=== PATIENT | female | born 1980 | race Caucasian/White ===

== ENCOUNTER 2022-04-29 14:12 | Outpatient (CLI) | payer BC, SELFPAY ==
[2022-04-29 17:31] LABS: Cholesterol* 180 mg/dL (90-199)
[2022-04-29 17:32] LABS: HDL Cholesterol* 52 mg/dL (>=50); LDL Cholesterol Calculated 106 mg/dL (<100); Triglycerides* 109 mg/dL (40-149)
[2022-04-29 17:48] LABS: Vitamin D 25 Hydroxy* 46 ng/mL (30-80)
[2022-04-29 18:00] LABS: TSH With Reflex to FT4* 0.695 uIU/mL (0.270-4.200)
[2022-04-29 18:01] LABS: Hepatitis B Surface Antigen* Negative (Negative)
[2022-04-29 18:12] LABS: HIV 1/2/P24 Combo Screen* Negative (Negative)
[2022-04-29 18:18] LABS: Hepatitis C Virus Antibody* Negative (Negative)
[2022-04-29 23:53] LABS: Chlamydia DNA Amplified* NOT DETECTED (No Detected); GC DNA Amplified* NOT DETECTED (No Detected)
[2022-05-02 00:20] LABS: Rapid Plasma Reagin (RPR) Non Reactive (Non Reactive)
== END 2022-04-29 14:13 | disposition home or self-care (01) ==
PROVIDERS: PCP Family Medicine; Visit Provider Registered Nurse
DX: Z01.419 Encounter for gynecological examination (general) (routine) without abnormal findings (principal); R53.83 Other fatigue; F41.9 Anxiety disorder, unspecified; Z13.9 Encounter for screening, unspecified; Z12.4 Encounter for screening for malignant neoplasm of cervix; Z11.4 Encounter for screening for human immunodeficiency virus [HIV]; Z11.3 Encounter for screening for infections with a predominantly sexual mode of transmission
CPT/HCPCS: 80061; 82306; 84443; 86592; 86703; 86803; 87340; 87491; 87591; 87624

== ENCOUNTER 2023-02-08 13:04 | Outpatient (CLI) | payer BC, SELFPAY ==
--- NOTE | 2023-02-08 13:20 | CRLHL7_ITS ---
For Patients: As a result of the Century Cures Act, medical imaging exams and procedure reports are released immediately into your electronic medical record. You may view this report before your referring provider. If you have questions, please contact your health care provider. BILATERAL SCREENING MAMMOGRAM WITH COMPUTER-AIDED DETECTION AND TOMOSYNTHESIS TECHNIQUE: CC and MLO views were obtained. These mammographic images have been obtained using full-field digital technique. These mammographic images were interpreted with the benefit of computer-aided detection. Breast tomosynthesis was used in this interpretation. COMPARISON FILM: 08/05/21. FINDINGS: The breasts are heterogeneously dense, which may obscure small masses. IMPRESSION: There is no radiographic evidence for malignancy. ASSESSMENT: BI-RADS Category 1: Negative RECOMMENDATION: Routine screening mammogram in 1 year. A lay language report of this examination will be provided to the patient. THOM STEINER M.D. Diagnostic Radiologist [email or web address] Transcribed: 3:[address]/Dictated by: Thom Steiner MD @ 02/09/2023 11:50:00 AM (Electronically Signed)
== END 2023-02-08 13:05 | disposition home or self-care (01) ==
LOC: MAMMO 13:04
PROVIDERS: PCP Family Medicine; Visit Provider Family Medicine
DX: Z12.31 Encounter for screening mammogram for malignant neoplasm of breast (principal); R92.2 Inconclusive mammogram
CPT/HCPCS: 77063; 77067

== ENCOUNTER 2024-02-04 13:52 | Outpatient (CLI) | payer BC, SELFPAY ==
--- OUTSIDE RECORDS SUMMARY | 2024-02-04 13:56 | XMS_ITS | Encounter Summary ---
Author Name Unknown Organization [place] Address [facility] [place] [address] Care Team Providers Care Roller Billet Mill Name Role Phone Joy Mallory MD Unavailable [phone] Maury Mccann Primary Care Provider [phone] Kade Edmonds MD Unavailable [phone] Encounter Details Date Type Department Care Team (Late st Contact Info) Description 12/01/2022 [facility] [place] [facility] Pre[facility] [address] [place] [address] Jazz Lloyd, RN Social History Tobacco Use Types Packs/Day Years Used Date Smoking Tobacco: Never Smokeless Tobacco: Never Alcohol Use Standard Drinks/Week Comments No 0 (1 standard drink = 0.6 oz pur e alcohol) PHQ-2 Answer Date Recorded PHQ-2 Score 0 12/01/2022 Sex and Gender Information Value Date Recorded Sex Assigned at Not on file Gender Identity Not on file Sexual Orientation Not on file COVID-19 Exposure Response Date Recorded In the last 10 days, have yo u been in contact with someone who was confirmed or suspected to have Coronavirus/COVID-19? No / Unsure 12/02/2022 9:17 AM POINT OF SALE ASSOCIATE documented as of this encounter Plan of Treatment Not on file documented as of this encounter Visit Diagnoses Not on filedocumented in this encounter Care Teams Roller Billet Mill Relationship Specialty Start Date End Date Maury Mccann [address] [place] [address] PCP - General Family Medicine 10/22/20 Joy Mallory MD Ophthalmology 01/31/18 Kade Edmonds MD [address] [place] [address] Assigned Surgical Provider 11/21/22 Mark Crabtree [facility] [address] [place] [address], [address] [place] [address] Referring Physician Ophthalmology 09/10/16 documented as of this encounter
--- OUTSIDE RECORDS SUMMARY | 2024-02-04 13:56 | XMS_ITS | Encounter Summary ---
Author Name Unknown Organization [place] Address [facility] [place] [address] Care Team Providers Care Plow And Boring Machine Tender Name Role Phone Joy Mallory MD Unavailable [phone] Maury Mccann Primary Care Provider [phone] Kade Edmonds MD Unavailable [phone] Reason for Visit * Reason Onset Date Comments Eye Problem 12/11/2022 Encounter Details Date Type Department Care Team (Late st Contact Info) Description 12/11/2022 [facility] [place] [facility] [address] [address] [place] [address] Cristian Matthews, RN Eye Problem Social History Tobacco Use Types Packs/Day Years [...] Coronavirus/COVID-19? No / Unsure 12/02/2022 9:17 AM HISTORIAN RESEARCH ASSISTANT documented as of this encounter Plan of Treatment Not on file documented as of this encounter Visit Diagnoses Not on filedocumented in this encounter Care Teams Plow And Boring Machine Tender Relationship Specialty Start Date End Date Kendra Mccannmargarito Hernandez [address] [place] [address] PCP - General Family Medicine 10/22/20 Joy Mallory MD Ophthalmology 01/31/18 Kade Edmonds MD [address] [place] [address] Assigned Surgical Provider 11/21/22 Mark Crabtree [facility] [address] [place] [address], [address] [place], [place] [id number] Referring Physician Ophthalmology 09/10/16 documented as of this encounter
--- OUTSIDE RECORDS SUMMARY | 2024-02-04 13:56 | XMS_ITS | Clinical Summary ---
Author Name Unknown Organization [place] Address [address] [place] [address] Care Team Providers Care Police Or Patrol Park Officer Name Role Phone Joy Mallory MD Unavailable [phone] Maury Mccann Primary Care Provider [phone] Kade Edmonds MD Unavailable [phone] Allergies Active Allergy Reactions Criticality Noted Date Comments Animal Dander 09/21/2016 Other reaction(s): Runny Nose Chromium 09/21/2016 Allergy to artificial metals Egg White (Egg Protein) Other (See Comments) 09/21/2016 No Clinical Screening - See Comments 09/21/2016 Other reaction(s): Runny Nose Ragweeds 09/21/2016 Other reaction(s): Runny Nose Zolpidem 09/21/2016 nightmares Medications Medication Sig Dispensed Refills Start Date End Date Status Multiple Vitamin (MULTIVITAMIN PO) Take by mouth every morning Active albuterol (PROAIR HFA/PROVENTIL HFA/VENTOLIN HFA) 108 (90 Base) MCG/ACT inhaler Inhale into the lungs as needed 03/19/2022 Active ckjieomg-vlhdbnbzu-ae xamethasone (MAXITROL) 0.1 % ophthalmic suspensionIndications :Ptosis of eyelid, left Place 1 drop Into the left eye 4 times daily 3 mL 12/02/2022 Active erythromycin (ROMYCIN) 5 MG/GM ophthalmic ointmentIndications:P tosis of eyelid, left Apply small amount to incision sites three times daily, then apply to inner lower lid of operative eye(s) at bedtime, as directed. 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 Miscarriage, threatened, early 015 Ovarian cyst complicating pr egnancy in first trimester, antepartum 11/19/2014 Pelvic pain complicating 11/19/2014 Supraventricular tachycardia (H24) 11/02/2014 Overview: Tachycardia Supraventricular (SVT) NOS OCD (obsessive compulsive disorder) 11/12/2012 Paroxysmal supraventricular tachycardia (H24) Overview: -02/09/08 S/P ablation Allergic rhinitis 12/13/2006 Mild asthma 12/13/2006 Overview: Asthma Chronic Mild Immunizations Name Administration Dates Next Due Flu 65+ Years 06/22/2012 Influenza (IIV3) PF 06/22/2012 MMR 02/08/1994,05/28/1981 TD,PF 7+ (Tenivac) 09/22/2005 TDAP (Adacel,Boostrix) 08/15/2012 Td (Adult), Adsorbed 04/05/1997 Tdap (Adult) Unspecified Formulation 04/05/1997 Family History Medical History Relation Comments Von Willebrand disease Daughter Glaucoma Maternal Grandmother Deep Vein Thrombosis Sister Anesthesia Reaction No family hx of Macular Degeneration No family hx of Relation Status Comments Daughter Alive Father Alive Maternal Grandmother Mother Alive Sister Social History Tobacco Use Types Packs/Day Years Used Date Smoking Tobacco: Never Smokeless Tobacco: Never Tobacco Cessation:Counseling Given: Not Answered Alcohol Use Standard Drinks/Week Comments No 0 (1 standard drink = 0.6 oz pur e alcohol) PHQ-2 Answer Date Recorded PHQ-2 Score 0 12/01/2022 Adolescent Education Answer Date Record ed Getting School Help Needed Not on file 07/02 Sex and Gender Information Value Date Recorded Sex Assigned at Not on file Gender Identity Not on file Sexual Orientation Not on file Last Filed Vital Signs Vital Sign Reading Time Taken Comments Blood Pressure 113/64 12/02/2022 12:00 PM MANAGER REVIEW Pulse 60 12/02/2022 12:00 PM MANAGER REVIEW Temperature 36.8 ??C (98.3 ??F) 12/02/2022 1 2:15 PM MANAGER REVIEW Respiratory Rate 16 12/02/2022 11:2 0 AM MANAGER REVIEW Oxygen Saturation 92% 12/02/2022 12: 00 PM MANAGER REVIEW Inhaled Oxygen Concentration - - Weight 100.2 kg (220 lb 14.4 oz) 12/02/2022 9:46 AM MANAGER REVIEW Height 175.3 cm (5' 9.02) 12/02/2022 9:46 AM CS T Body Mass Index 32.61 12/02/2022 9:46 AM MANAGER REVIEW Plan of Treatment Health Maintenance Due Date Last Done Comments ADVANCE CARE PLANNING 1980 ANNUAL REVIEW OF HM ORDERS 1980 ASTHMA ACTION PLAN 1980 ASTHMA CONTROL TEST 1980 GLUCOSE 1980 MAMMO SCREENING 1980 YEARLY PREVENTIVE VISIT 1980 Pneumococcal Vaccine: Pediatrics (0 to 5 Years) and At-Risk Patients (6 to 64 Years) (1 of 2 - PCV) 02/01/1986 HIV SCREENING 02/01/1995 HEPATITIS C SCREENING 02/01/1998 HEPATITIS B IMMUNIZATION (1 of 3 - 19+ 3-dose series) 02/01/1999 PAP 02/01/2001 LIPID 2020 DTAP/TDAP/TD IMMUNIZATION (4 - Td or Tdap) 08/15/2022 08/15/2012, 09/22/2005, 04/05/1997, Additional history exists COVID-19 Vaccine (1 - season) 2023 INFLUENZA VACCINE (#1) 2023 06/22/2012, 2011 PHQ-2 (once per calendar year) 2023 12/01/2022, 11/16/2022 HPV IMMUNIZATION Aged Out No longer e ligible based on patient's age to complete this topic IPV IMMUNIZATION Aged Out No longer e ligible based on patient's age to complete this topic MENINGITIS IMMUNIZATION Aged Out No l onger eligible based on patient's age to complete this topic RSV MONOCLONAL ANTIBODY Aged Out No l onger eligible based on patient's age to complete this topic Medical Devices Implanted Type Area Freelance Court Stenographer Device Identifier Shelf Expiration Date Model / Serial / Lot Bioinductive Implant With Arthroscopic Delivery System (1) Medium Implanted:Qty: 1 on 10/22/2020 by Carmine Mcgrath MD at [facility] Left: Shoulder [employer] 05/18/2022 [id number] / / [id number] Tendon Anchors (8) Implanted:Qty: 1 on 10/22/2020 by Carmine Mcgrath MD at [facility] Left: Shoulder [employer] [id number] 08/08/2022 [id number] / / [id number] Bone Anchors (3) Implanted:Qty: 1 on 10/22/2020 by Carmine Mcgrath MD at [facility] Left: Shoulder [employer] [id number] 05/10/2023 [id number] / / [id number] Care Teams Police Or Patrol Park Officer Relationship Specialty Start Date End Date Ramy Maury P [address] [place] [address] [place] [address] PCP - General Family Medicine 10/22/20 Joy Mallory MD Ophthalmology 01/31/18 Kade Edmonds MD [address] [place] [address] [id number] Assigned Surgical Provider 11/21/22 Mark Crabtree [facility] [address] [place] [address], [address] [place] [address] Referring Physician Ophthalmology 09/10/16
--- OUTSIDE RECORDS SUMMARY | 2024-02-04 13:56 | XMS_ITS | Encounter Summary ---
Author Name Unknown Organization [place] Address [facility] [place] [place] [address] Care Team Providers Care Metal Drawer Name Role Phone Joy Mallory MD Unavailable [phone] Maury Mccann Primary Care Provider [phone] Kade Edmonds MD Unavailable [phone] Encounter Details Date Type Department Care Team (Late st Contact Info) Description 12/01/2022 [facility] [place] [facility] Preoperative Assessment [facility] [address] 5th [place] [address] Cathy Rajput, [place] Social History Tobacco Use Types Packs/Day Years [...] Coronavirus/COVID-19? No / Unsure 12/02/2022 9:17 AM GASOLINE PUMP MECHANIC documented as of this encounter Plan of Treatment Not on file documented as of this encounter Visit Diagnoses Not on filedocumented in this encounter Care Teams Metal Drawer Relationship Specialty Start Date End Date Maury Mccann [address] [place] [address] PCP - General Family Medicine 10/22/20 Joy Mallory MD Ophthalmology 01/31/18 Kade Edmonds MD [address] [place] [address] Assigned Surgical Provider 11/21/22 Mark Crabtree [facility] [address] [place] [address], [address] [place] [address] Referring Physician Ophthalmology 09/10/16 documented as of this encounter
--- OUTSIDE RECORDS SUMMARY | 2024-02-04 13:56 | XMS_ITS | Referral Summary ---
Author Name Unknown Organization [place] Address [address] [place] [address] Care Team Providers Care Railroad Operator Name Role Phone Joy Mallory MD Unavailable [phone] Maury Mccann Primary Care Provider [phone] Kade Edmonds MD Unavailable [phone] Allergies Active Allergy Reactions Criticality Noted [...] into the lungs as needed 03/19/2022 Active glrbdrkb-uvejuspdx-zp xamethasone (MAXITROL) 0.1 % ophthalmic suspensionIndications :Ptosis [...] Adsorbed 04/05/1997 Tdap (Adult) Unspecified Formulation 04/05/1997 Social History Tobacco Use Types Packs/Day Years [...] Comments Blood Pressure 113/64 12/02/2022 12:00 PM MACHINE GUNNER Pulse 60 12/02/2022 12:00 PM MACHINE GUNNER Temperature 36.8 ??C (98.3 ??F) 12/02/2022 1 2:15 PM MACHINE GUNNER Respiratory Rate 16 12/02/2022 11:2 0 AM MACHINE GUNNER Oxygen Saturation 92% 12/02/2022 12: 00 PM MACHINE GUNNER Inhaled Oxygen Concentration - - Weight 100.2 kg (220 lb 14.4 oz) 12/02/2022 9:46 AM MACHINE GUNNER Height 175.3 cm (5' 9.02) 12/02/2022 9:46 AM CS T Body Mass Index 32.61 12/02/2022 9:46 AM MACHINE GUNNER Plan of Treatment Not on file Medical Devices Implanted Type Area General Farm Hand Device Identifier Shelf Expiration Date Model / Serial / Lot Bioinductive Implant With Arthroscopic Delivery System (1) Medium Implanted:Qty: 1 on 10/22/2020 by Carmine Mcgrath MD at [facility] Left: Shoulder [employer]W 05/18/2022 [id number] / / [id number] Tendon Anchors (8) Implanted:Qty: 1 on 10/22/2020 by Carmine Mcgrath MD at [facility] Left: Shoulder [employer]HEW [id number] 08/08/2022 2504-1 / / [id number] Bone Anchors (3) Implanted:Qty: 1 on 10/22/2020 by Carmine Mcgrath MD at [facility] Left: Shoulder [employer]HEW [id number] 05/10/2023 [id number] / / [id number] Care Teams Railroad Operator Relationship Specialty Start Date End Date Maury Mccann [address] [place] [address] PCP - General Family Medicine 10/22/20 Joy Mallory MD Ophthalmology 01/31/18 Kade Edmonds MD [address] [place] [address] Assigned Surgical Provider 11/21/22 Mark Crabtree [facility] [address] [place] [address], [address] [place] [address] Referring Physician Ophthalmology 09/10/16
--- OUTSIDE RECORDS SUMMARY | 2024-02-04 13:56 | XMS_ITS | Encounter Summary ---
Author Name Unknown Organization [place] Address [facility] [place] [address] Care Team Providers Care Sugar Chipper Machine Operator Name Role Phone Thom Jones MD Primary Care Provider Joy Mallory MD Unavailable [phone] Maury Mccann Primary Care Provider [phone] Kade Edmonds MD Unavailable [phone] Encounter Details Date Type Department Care Team (Late st Contact Info) Description 09/27/2020 Orders Only [facility] OR [address] [place] [address] Carmine Mcgrath MD [facility] [address] [place] [address] Encounter for screening for other viral diseases Social History Tobacco Use Types Packs/Day Years Used Date Smoking Tobacco: Never Smokeless Tobacco: Never Alcohol Use Standard Drinks/Week Comments No 0 (1 standard drink = 0.6 oz pur e alcohol) Sex and Gender Information Value Date Recorded Sex Assigned at Not on file Gender Identity Not on file Sexual Orientation Not on file documented as of this encounter Plan of Treatment Not on file documented as of this encounter Results * Asymptomatic COVID-19 Virus (Coronavirus) by PCR (10/18/2020 2:47 PM STATISTICS INTERN) COVID-19 Virus PCR to [facility] - Source Nasopharyngeal 10/18/2020 2:47 PM STATISTICS INTERN [facility] COVID-19 Virus PCR to [facility] - Result Test received-See reflex to IDDL test SARS CoV2 (COVID-19) Virus RT-PCR 10/18/2020 6:37 PM STATISTICS INTERN INFECTIOUS DISEASES [facility], [facility] Specimen from nasopharyngeal structure (specimen) 10/18/2020 2:47 PM STATISTICS INTERN 10/18/2020 2:48 PM STATISTICS INTERN Carmine Mcgrath MD LAB - MICRO GENERAL ORDERABLES INFECTIOUS DISEASES [facility], [facility] [address] [place] [address], [facility] [address] [place], [place] [address] [phone] documented in this encounter Visit Diagnoses Diagnosis Encounter for screening for other viral diseases documented in this encounter Care Teams Sugar Chipper Machine Operator Relationship Specialty Start Date End Date Thom Jones MD PCP - General Family Practice 09/10/16 10/21/20 Maury Mccann [address] [place] [address] PCP - General Family Medicine 10/22/20 Joy Mallory MD Ophthalmology 01/31/18 Kade Edmonds MD [address] [place] [address] Assigned Surgical Provider 11/21/22 Mark Crabtree [facility] [address] [place] [address], [address] [place] [address] Referring Physician Ophthalmology 09/10/16 documented as of this encounter
--- OUTSIDE RECORDS SUMMARY | 2024-02-04 13:56 | XMS_ITS | Clinical Summary ---
Author Name Unknown Organization [employer] [facility] Address [place], [place] [address] Care Team Providers Care Educational Therapist Name Role Phone Devendra Mccann MD Primary Care Provider Allergies Active Allergy Reactions Criticality Noted Date Comments Zolpidem Tartrate 03/13/2010 nightmares Animal Dander Itching 09/21/2016 Other reaction(s): Runny Nose Cat Dander Itching 10/06/2006 Cats (Fur, Dander, Saliva) Runny Nose 10/06/2006 Chromium Rash 09/21/2016 Allergy to artificial metals Canine Protein Containing Products Runny Nose 10/06/2006 Chromium And Derivatives 01/18/2008 Allergy to artificial metals Pollen Extracts Itching 09/21/2016 Other reaction(s): Runny Nose Ragweed Itching 09/21/2016 Other reaction(s): Runny Nose Stock Ragweed Pollen Mixture Runny Nose 10/06/2006 Zolpidem Hallucinations 11/02/2014 Medications Medication Sig Dispensed Refills Start Date End Date Status ibuprofen (ADVIL; MOTRIN) 600 mg tabletIndications:Adhes papa capsulitis of left shoulder Take 1 Tablet (600 mg) by mouth every 6 hours if needed for Pain. Maximum of 3200 mg in 24 hours. 30 Tablet 12/25/2021 Active cyclobenzaprine (FLEXERIL) 10 mg tabletIndications:Acute nonintractable headache, unspecified headache type Take 1 Tablet (10 mg) by mouth 3 times daily if needed for Muscle Spasm. 15 Tablet 06/17/2022 Active sertraline (ZOLOFT) 100 mg tablet Take 100 mg by mouth once daily. 04/30/2022 Active cyclobenzaprine (FLEXERIL) 10 mg tabletIndications:Migra ine without aura and without status migrainosus, not intractable Take 1 Tablet (10 mg) by mouth 3 times daily if needed for Muscle Spasm. 30 Tablet 09/14/2022 Active ondansetron (ZOFRAN ODT) 4 mg disintegrating tabletIndications:Migra ine without aura and without status migrainosus, not intractable Place 1 Tablet (4 mg) on the tongue every 8 hours if needed for Nausea/Vomiting . 20 Tablet 09/14/2022 Active albuterol HFA (PRO-AIR; VENTOLIN; PROVENTIL) 90 mcg/actuation inhalerIndications:Acut e cough Inhale 1-2 Puffs by mouth every 6 hours if needed (Cough). 1 Each 03/16/2023 Active Ventolin HFA 90 mcg/actuation inhalerIndications:Bron chitis INHALE TWO PUFFS BY MOUTH EVERY 4 HOURS WHILE AWAKE 1 Each 06/02/2023 Active Active Problems Problem Noted Date Diagnosed Date Adhesive capsulitis of left shoulder 12/24/2021 Anal fissure 11/06/2019 Varicose veins of both lower extremities with pa in 09/12/2019 External hemorrhoids 09/12/2019 Left elbow pain 08/08/2019 Entrapment of left ulnar nerve 08/08/2019 Numbness and tingling in left arm 08/08/2019 Migratory Vision changes 05/17/2019 History of headache 05/17/2019 External hemorrhoid 05/07/2018 Sinus node dysfunction 08/19/2017 Pacemaker 08/19/2017 Palpitations 02/11/2017 Ptosis of left eyelid 07/13/2016 Sinus bradycardia 04/02/2016 Frequent PVCs 04/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 FOB - History SVT - s/p ablation Supervision of other normal 06/15/2012 11/12/2012 Overview: Marginal placenta. Repeat US at 32 weeks. Resolved. Flu 06/22/12 TDaP 08/15/12 First trimester bleeding 04/19/201211/2012 Unspecified asthma(493.90) 01/18/2008 0 11/15/2008 Grade III hemorrhoids 2017 Encounters Date Type Department Care Team Description 12/28/2023 Telephone AGELON ? [facility] [address] [facility] [address] [place] [address] Shlomo Irizarry MD Device Check from Last 3 Months Immunizations Name Administration Dates Next Due Influenza, IIV3 (Age >=3 years) 06/22/2012 MMR 02/08/1994,05/28/1981 Td (Age >=7 Years) 04/05/1997 Td, Preservative Free (age >= 7 Years) 5 Tdap 08/15/2012 Family History Medical History Relation Name Comments Heart Disease Father Jamey Stent Hyperlipidemia Father Jamey Hypertension Father Jamey Stroke Maternal Grandfather Diabetes Maternal Grandmother Lung Ca ncer; Brain Anurysm; Spina Bifida Diabetes Mother Heart Disease Paternal Grandfather Heart Disease Paternal Grandmother Anesthesia Problem No Family History Clotting disorder No Family History Relation Name Status Comments Brother Alive x1 Daughter Alive x1 Father Jamey Alive Maternal Grandfather Alive Maternal Grandmother Mother Alive Paternal Grandfather Paternal Grandmother Sister Alive x2 Social History Tobacco Use Types Packs/Day Years Used Date Smoking Tobacco: Never Smokeless Tobacco: Never Tobacco Cessation:Counseling Given: Yes Alcohol Use Standard Drinks/Week Comments Never 0 (1 standard drink = 0.6 oz pur e alcohol) PHQ-2 Answer Date Recorded PHQ-2 TOTAL SCORE 2 10/07/2020 Social Connections Answer Date Recorded Frequency of Communication with Friends and Fami ly 0 07/17/2022 Financial Resource Strain Answer Date R ecorded Difficulty of Paying Living Expenses 3 07/17/2022 Difficulty of Paying Living Expenses Not on file 07/17/2022 Food Insecurity Answer Date Recorded Worried About Running Out of Food in the Last Ye ar 1 07/17/2022 Transportation Needs Answer Date Record ed Lack of Transportation (Medical) 1 07/17/2022 Housing Stability Answer Date Recorded Unable to Pay for Housing in the Last Year 1 07/17/2022 Sex and Gender Information Value Date Recorded Sex Assigned at Female 11/24/2021 7:04 PM LOFT WORKER Gender Identity Female 11/24/2021 7:04 PM LOFT WORKER Sexual Orientation Straight 11/24/2021 7: 04 PM LOFT WORKER Obstetrics History Para Term AB IAB SAB Ectopic Multiple Livin g Live Births 5 2 2 0 3 0 2 1 0 2 2 Date Outcome GA Total Labor Labor/2nd/3rd Weight Sex Delivery Anes PTL Jacki A1 A5 Name Cl in 08/12 Term 40w 0d 3.8 kg (8 lb 6 oz) F Vag Epidu ral Bev ng 8 9 [place] Delivery Location:[facility] 09/30 Term 39w 2d 3.54 kg (7 lb 13 oz) F Vag Bev ng 8 9 [place] Delivery Location:[facility] 01/25 SAB 8w0 d SPONTANEO US 07/07 SAB 12w 0d SPONTANEO US 11/19 Ectopic 5w0 d ECTOPIC Sánchez Delivery Location:[facility] Comments:ruptured righ t ectopic Last Filed Vital Signs Vital Sign Reading Time Taken Comments Blood Pressure 120/66 10/17/2023 10:40 AM LOFT WORKER Pulse 60 10/17/2023 10:40 AM LOFT WORKER Temperature 37.1 ??C (98.8 ??F) 10/17/2023 1 0:40 AM LOFT WORKER Respiratory Rate 16 10/17/2023 10:4 0 AM LOFT WORKER Oxygen Saturation 96% 10/17/2023 10: 40 AM LOFT WORKER Inhaled Oxygen Concentration - - Weight 106.3 kg (234 lb 6.4 oz) 024 10:40 AM LOFT WORKER Height 170.2 cm (5' 7) 03/19/2022 4:22 PM CDT Body Mass Index 36.71 03/19/2022 4:22 PM CDT Plan of Treatment Upcoming Encounters Date Type Department Care Team (Late st Contact Info) Description 03/22/2024 10:00 AM CDT Cardiac Device Check [facility] [place] [place] [address] Health Maintenance Due Date Last Done Comments BMI (ht and wt on same day) for age 18+ 10/14/2021 10/14/2020, 06/14/2020, 06/04/2020, Additional history exists Depression screening for age 12+ 10/14/2021 10/14/2020, 10/07/2020, 06/16/2019, Additional history exists Tetanus booster 08/15/2022 08/15/2012, 09/10, 04/05/1997 COVID-19 vaccine series ( season) 2023 Influenza for age 9-49 06/11/2024 06/22/2012 Pap test for age 21-65 04/29/2027 , 04/29/2022, 04/11/2021, Additional history exists Tdap Completed 08/15/2012 HIV for age 15-65 Completed 10/07/2020, 03/25/2012 Hepatitis C screening for age 18-79 Completed 10/07/2020 Pneumococcal series for age 6-64 Aged Out No longer eligible based on patient's age to complete this topic Medical Devices Implanted Type Area Printed Circuit Board Reworker Device Identifier Shelf Expiration Date Model / Serial / Lot Single Chamber Mri Conditional Pacemaker Implanted:05/08 by Shlomo Irizarry MD (Quantity not on file) Standard Pacemaker [employer] ESSENTIO MRI SR [id number] / [id number] / Procedures Procedure Name Priority Date/Time Associated Diagnosis Comments HPV THIN PREP Routine 04/29/2022 12:00 PM CDT ANTI HIV 1/2 Routine 10/07/2020 3:22 PM LOFT WORKER Screen for STD (sexually transmitted disease) ANTI HCV Routine 10/07/2020 3:22 PM LOFT WORKER Screen for STD (sexually transmitted disease) from Last 3 Months or Most Recently Relevant to Health Maintenance Results * HPV HIGH RISK (04/29/2022 12:00 PM CDT) TYPE 16 Negative Negative 05/04/2022 3:25 PM CDT [facility] TYPE 18 Negative Negative 05/04/2022 3:25 PM CDT [facility] OTHER HIGH RISK TYPES Negative Negative 05/04/2022 3:25 PM CDT [facility] Other (Cervical) 04/29/2022 12:00 PM CDT 04/30/2022 5:16 PM CDT Narrative [facility] - 05/04/2022 3:25 PM CDT HPV types 16, 18, 31, 33, 35, 39, 45, 51, 52, 56, 58, 59, 66 and 68 DNA were undetectable or below the pre-set threshold. Methodology: Hannah Rafaela 4800 HPV Test Zainab Velásquez NP MICROBIOLOGY Performing Organization Address City/[facility]/ZIP Co de Phone Number [facility] [address] [place] [address], [place] * ANTI HCV (10/07/2020 3:22 PM LOFT WORKER) Pathologist [facility] ANTIBODY Non-React papa Non-React papa 10/07/2020 7:07 PM LOFT WORKER [facility] Comment:Antibodies to HCV no t detected; does not exclude the possibility of exposure to HCV. Blood BLOOD SPECIMEN / Unknown Venipuncture / Unknown 10/07/2020 3:22 PM LOFT WORKER 10/07/2020 3:22 PM LOFT WORKER Soila REED SEND OUTS [facility] [address] [place] [id number], [place] * ANTI HIV 1/2 (10/07/2020 3:22 PM LOFT WORKER) HIV-1/HIV-2 ANTIBODY Non-Reacti ve Non-Reacti ve 10/07/2020 7:09 PM LOFT WORKER [facility] Comment:HIV-1 p24 and HIV-1/ HIV-2 Ab not detected. Blood BLOOD SPECIMEN / Unknown Venipuncture / Unknown 10/07/2020 3:22 PM LOFT WORKER 10/07/2020 3:22 PM LOFT WORKER Soila REED SEND OUTS [facility] [address] [place] [address], from Last 3 Months or Most Recently Relevant to Health Maintenance Advance Directives * Full Code (Latest Code Status on File) Date Activated Date Inactivated Comments 12/25/2021 8:47 AM 12/25/2021 4:33 PM Question Answer Comments Code Status Discussion: Not Discussed * Full Code Date Activated Date Inactivated Comments 06/05/2020 6:12 AM 06/05/2020 1:57 PM Question Answer Comments Code Status Discussion: Not Discussed * Full Code Date Activated Date Inactivated Comments 06/05/2020 6:12 AM 06/05/2020 6:12 AM Question Answer Comments Code Status Discussion: Not Discussed * Full Code Date Activated Date Inactivated Comments 04/17/2020 12:37 PM 04/17/2020 3:57 PM * Full Code Date Activated Date Inactivated Comments 04/17/2020 9:40 AM 04/17/2020 12:37 PM Care Teams Educational Therapist Relationship Specialty Start Date End Date Devendra Mccann MD [address] [place] [address] PCP - General Family Practice 03/06/20
[2024-02-04 18:53] LABS: Chlamydia DNA Amplified* NOT DETECTED (No Detected); GC DNA Amplified* NOT DETECTED (No Detected)
== END 2024-02-04 13:53 | disposition home or self-care (01) ==
PROVIDERS: PCP Family Medicine; Visit Provider Registered Nurse
DX: Z83.2 Family history of diseases of the blood and blood-forming organs and certain disorders involving the immune mechanism (principal); Z13.0 Encounter for screening for diseases of the blood and blood-forming organs and certain disorders involving the immune mechanism
CPT/HCPCS: 80053; 82306; 84443; 85240; 85245; 85246; 87491; 87591

== ENCOUNTER 2024-02-04 14:27 | Outpatient (CLI) | payer BC, SELFPAY ==
--- NOTE | 2024-02-04 14:00 | MM_ITS ---
Patient: LEANA GUY Facility:?[facility] Patient ID:?[id number] Site Patient ID:?[id number]. Site :?[id number] Study:?XRay-Breast Bilateral 3D W/CAD-02/04/2024 3:31:25 PM Ordering Physician:THOM HERNANDEZ Final Report: BILATERAL SCREENING MAMMOGRAM WITH COMPUTER-AIDED DETECTION AND TOMOSYNTHESIS TECHNIQUE: CC and MLO views were obtained. These mammographic images have been obtained using full-field digital technique. These mammographic images were interpreted with the benefit of computer-aided detection. Breast Tomosynthesis was used in this interpretation. COMPARISON FILM: 02/08/23, 08/13/21, 08/05/21. FINDINGS: The breasts are heterogeneously dense, which may obscure small masses. IMPRESSION: There is no radiographic evidence for malignancy. ASSESSMENT: BI-RADS Category 2: Benign RECOMMENDATION: Routine screening mammogram in 1 year. A lay language report of this examination will be provided to the patient. Thom Dc M.D. Diagnostic Radiologist [email or web address] DSM/sp R&T: Transcribed: 3:42 p.m. SP/Dictated by: Thom Dc MD @ 02/07/2024 10:26:00 AM Signed by:?Thom Dc MD @02/07/2024 3:59:25 PM (Electronic Signature)
--- OUTSIDE RECORDS SUMMARY | 2024-02-04 14:29 | XMS_ITS | Encounter Summary ---
Author Name Unknown Organization [facility] Address [facility] [place] [address] Care Team Providers Care A R Collections Rep Name Role Phone Joy Mallory MD Unavailable [phone] Maury Mccann Primary Care Provider [phone] Kade Edmonds MD Unavailable [phone] Encounter Details Date Type Department Care Team (Late st Contact Info) Description 12/01/2022 [facility] [place] Medical Advice [facility] [address] 5th [place] [address] Cathy Rajput, [facility] Social History [...] Coronavirus/COVID-19? No / Unsure 12/02/2022 9:17 AM CHAMPION OF SUSTAINABLE DESIGN documented as of this encounter Plan of Treatment Not on file documented as of this encounter Visit Diagnoses Not on filedocumented in this encounter Care Teams A R Collections Rep Relationship Specialty Start Date End Date Maury Mccann [address] [place] [address] PCP - General Family Medicine 10/22/20 Joy Mallory MD Ophthalmology 01/31/18 Kade Edmonds MD [address] [place] [address] [id number] Assigned Surgical Provider 11/21/22 Mark Crabtree [facility] [address] [place] [address], [address] [place] [address] Referring Physician Ophthalmology 09/10/16 documented as of this encounter
--- OUTSIDE RECORDS SUMMARY | 2024-02-04 14:29 | XMS_ITS | Encounter Summary ---
Author Name Unknown Organization [facility] Address [facility] [place] [address] Care Team Providers Care Marine Engineer Name Role Phone Joy Mallory MD Unavailable [phone] Maury Mccann Primary Care Provider [phone] Kade Edmonds MD Unavailable [phone] Reason for Visit * Reason Onset Date Comments Eye Problem 12/11/2022 Encounter Details Date Type Department Care Team (Late st Contact Info) Description 12/11/2022 [facility] [place] [facility] [address] [address] [place] [address] Cristian Matthews, RN Eye Problem Social History [...] Coronavirus/COVID-19? No / Unsure 12/02/2022 9:17 AM [employer] DRIVER documented as of this encounter Plan of Treatment Not on file documented as of this encounter Visit Diagnoses Not on filedocumented in this encounter Care Teams Marine Engineer Relationship Specialty Start Date End Date Kendra Mccannmargarito Hernandez [address] [place] [address] PCP - General Family Medicine 10/22/20 Joy Mallory MD Ophthalmology 01/31/18 Kade Edmonds MD [address] [place] [address] Assigned Surgical Provider 11/21/22 Mark Cr[facility]tree [facility] [address] [place] [address], [address] [place], [place] [address] Referring Physician Ophthalmology 09/10/16 documented as of this encounter
--- OUTSIDE RECORDS SUMMARY | 2024-02-04 14:29 | XMS_ITS | Referral Summary ---
Author Name Unknown Organization [facility] Address [address] [place] [address] Care Team Providers Care Soil Expert Name Role Phone Joy Mallory MD Unavailable Maury Mccann Primary Care Provider [phone] Kade Edmonds MD Unavailable Allergies Active Allergy Reactions Criticality Noted Date [...] into the lungs as needed 03/19/2022 Active xjifipge-udnyakzdj-rp xamethasone (MAXITROL) 0.1 % ophthalmic suspensionIndications :Ptosis [...] Comments Blood Pressure 113/64 12/02/2022 12:00 PM NEONATAL DOCTOR Pulse 60 12/02/2022 12:00 PM NEONATAL DOCTOR Temperature 36.8 ??C (98.3 ??F) 12/02/2022 1 2:15 PM NEONATAL DOCTOR Respiratory Rate 16 12/02/2022 11:2 0 AM NEONATAL DOCTOR Oxygen Saturation 92% 12/02/2022 12: 00 PM NEONATAL DOCTOR Inhaled Oxygen Concentration - - Weight 100.2 kg (220 lb 14.4 oz) 12/02/2022 9:46 AM NEONATAL DOCTOR Height 175.3 cm (5' 9.02) 12/02/2022 9:46 AM CS T Body Mass Index 32.61 12/02/2022 9:46 AM NEONATAL DOCTOR Plan of Treatment Not on file Medical Devices Implanted Type Area Hand Chain Maker Device Identifier Shelf Expiration Date Model / Serial / Lot Bioinductive Implant With Arthroscopic Delivery System (1) Medium Implanted:Qty: 1 on 10/22/2020 by Carmine Mcgrath MD at [facility] Left: Shoulder [employer] 05/18/2022 [id number] / / [id number] Tendon Anchors (8) Implanted:Qty: 1 on 10/22/2020 by Carmine Mcgrath MD at [facility] Left: Shoulder [employer] [id number] 08/08/2022 2504-1 / / [id number] Bone Anchors (3) Implanted:Qty: 1 on 10/22/2020 by Carmine Mcgrath MD at [facility] Left: Shoulder [employer] [id number] 05/10/2023 [id number] / / [id number] Care Teams Soil Expert Relationship Specialty Start Date End Date Maury Mccann [address] [place] [address] PCP - General Family Medicine 10/22/20 Joy Mallory MD Ophthalmology 01/31/18 Kade Edmonds MD [address] [place] [address] [id number] Assigned Surgical Provider 11/21/22 Mark Crabtree [facility] [address] [place] [address], [address] [place] [address] Referring Physician Ophthalmology 09/10/16
--- OUTSIDE RECORDS SUMMARY | 2024-02-04 14:29 | XMS_ITS | Clinical Summary ---
Author Name Unknown Organization [facility] Address [address] [place] [address] Care Team Providers Care Wood Heel Fitter Machine Name Role Phone Joy Mallory MD Unavailable Maury Mccann Primary Care Provider [phone] Kade Edmonds MD Unavailable [phone] Allergies Active Allergy Reactions Criticality Noted [...] into the lungs as needed 03/19/2022 Active sngnaqof-rluccorve-cr xamethasone (MAXITROL) 0.1 % ophthalmic suspensionIndications :Ptosis [...] Comments Blood Pressure 113/64 12/02/2022 12:00 PM TECHNICIAN PREVENTATIVE MEDICINE Pulse 60 12/02/2022 12:00 PM TECHNICIAN PREVENTATIVE MEDICINE Temperature 36.8 ??C (98.3 ??F) 12/02/2022 1 2:15 PM TECHNICIAN PREVENTATIVE MEDICINE Respiratory Rate 16 12/02/2022 11:2 0 AM TECHNICIAN PREVENTATIVE MEDICINE Oxygen Saturation 92% 12/02/2022 12: 00 PM TECHNICIAN PREVENTATIVE MEDICINE Inhaled Oxygen Concentration - - Weight 100.2 kg (220 lb 14.4 oz) 12/02/2022 9:46 AM TECHNICIAN PREVENTATIVE MEDICINE Height 175.3 cm (5' 9.02) 12/02/2022 9:46 AM CS T Body Mass Index 32.61 12/02/2022 9:46 AM TECHNICIAN PREVENTATIVE MEDICINE Plan of Treatment Health Maintenance Due Date [...] this topic Medical Devices Implanted Type Area Fur Trapper Device Identifier Shelf Expiration Date Model / Serial / Lot Bioinductive Implant With Arthroscopic Delivery System (1) Medium Implanted:Qty: 1 on 10/22/2020 by Carmine Mcgrath MD at [facility] Left: Shoulder [employer] 05/18/2022 [id number] / / [id number] Tendon Anchors (8) Implanted:Qty: 1 on 10/22/2020 by Carmine Mcgrath MD at [facility] Left: Shoulder [employer] [id number] 08/08/2022 2504-1 / / [id number] Bone Anchors (3) Implanted:Qty: 1 on 10/22/2020 by Carmine Mcgrath MD at [facility] Left: Shoulder [employer] [id number] 05/10/2023 [id number] / / [id number] Care Teams Wood Heel Fitter Machine Relationship Specialty Start Date End Date Ramy Maury P [address] [place] [address] [place] [address] PCP - General Family Medicine 10/22/20 Joy Mallory MD Ophthalmology 01/31/18 Kade Edmonds MD [address] [place] [address] [id number] Assigned Surgical Provider 11/21/22 Mark Crabtree [facility] [address] [place] [address], [address] [place] [address] Referring Physician Ophthalmology 09/10/16
--- OUTSIDE RECORDS SUMMARY | 2024-02-04 14:29 | XMS_ITS | Encounter Summary ---
Author Name Unknown Organization [facility] Address [facility] [place] [address] Care Team Providers Care Radio Station Operator Name Role Phone Joy Mallory MD Unavailable [phone] Maury Mccann Primary Care Provider [phone] Kade Edmonds MD Unavailable [phone] Encounter Details Date Type Department Care Team (Late st Contact Info) Description 12/01/2022 [facility] Medical Advice [facility] Preoperative Assessment Center [address] 5th [place] [address] Jazz Lloyd, RN Social History [...] Coronavirus/COVID-19? No / Unsure 12/02/2022 9:17 AM PRODUCTION OPERATIONS INSPECTOR documented as of this encounter Plan of Treatment Not on file documented as of this encounter Visit Diagnoses Not on filedocumented in this encounter Care Teams Radio Station Operator Relationship Specialty Start Date End Date Maury Mccann [address] [place] [address] PCP - General Family Medicine 10/22/20 Joy Mallory MD Ophthalmology 01/31/18 Kade Edmonds MD [address] [place] [address] Assigned Surgical Provider 11/21/22 Mark Crabtree [facility] [address] [place] [address], [address] [place] [address] Referring Physician Ophthalmology 09/10/16 documented as of this encounter
--- OUTSIDE RECORDS SUMMARY | 2024-02-04 14:29 | XMS_ITS | Clinical Summary ---
Author Name Unknown Organization [employer] Address [place], [place] [address] Care Team Providers Care Rental Sales Representative Name Role Phone Devendra Mccann MD Primary [...] Encounters Date Type Department Care Team Description 02/04/2024 Telephone [facility] [address] [facility] [address] [place] [address] Shlomo Irizarry MD Pacemaker Problem 12/28/2023 Telephone [facility] [address] [place] [address] Shlomo Irizarry MD Device Check from Last [...] Sex Assigned at Female 11/24/2021 7:04 PM PUBLIC INTERVIEWER Gender Identity Female 11/24/2021 7:04 PM PUBLIC INTERVIEWER Sexual Orientation Straight 11/24/2021 7: 04 PM PUBLIC INTERVIEWER Obstetrics History Para Term AB IAB SAB [...] 8 9 [place] Delivery Location:[facility] 09/30 Term 39w 2d 3.54 kg (7 lb 13 oz) F Vag Bev ng 8 9 [place] Delivery Location:[facility] 01/25 SAB 8w0 d SPONTANEO US 07/07 SAB 12w 0d SPONTANEO US 11/19 Ectopic 5w0 d ECTOPIC Sánchez Delivery Location:[facility] Comments:ruptured righ t ectopic Last Filed Vital Signs Vital Sign Reading Time Taken Comments Blood Pressure 120/66 10/17/2023 10:40 AM PUBLIC INTERVIEWER Pulse 60 10/17/2023 10:40 AM PUBLIC INTERVIEWER Temperature 37.1 ??C (98.8 ??F) 10/17/2023 1 0:40 AM PUBLIC INTERVIEWER Respiratory Rate 16 10/17/2023 10:4 0 AM PUBLIC INTERVIEWER Oxygen Saturation 96% 10/17/2023 10: 40 AM PUBLIC INTERVIEWER Inhaled Oxygen Concentration - - Weight 106.3 kg (234 lb 6.4 oz) 024 10:40 AM PUBLIC INTERVIEWER Height 170.2 cm (5' 7) 03/19/2022 4:22 PM CDT Body Mass Index 36.71 03/19/2022 4:22 PM CDT Plan of Treatment Upcoming Encounters Date Type Department Care Team (Late st Contact Info) Description 03/22/2024 10:00 AM CDT Cardiac Device Check [facility] at [address] [address] Health Maintenance Due Date Last Done Comments BMI (ht and wt on same day) for age 18+ 10/14/2021 10/14/2020, 06/14/2020, 06/04/2020, Additional history exists Depression screening for age 12+ 10/14/2021 10/14/2020, 10/07/2020, 06/16/2019, Additional history exists Tetanus booster 08/15/2022 08/15/2012, 09/10, 04/05/1997 COVID-19 vaccine series ( season) 2023 Influenza for age 9-49 06/11/2024 06/22/2012 Pap test for age 21-65 04/29/2027 2, 04/29/2022, 04/11/2021, Additional history exists Tdap Completed 08/15/2012 HIV for age 15-65 Completed 10/07/2020, 03/25/2012 Hepatitis C screening for age 18-79 Completed 10/07/2020 Pneumococcal series for age 6-64 Aged Out No longer eligible based on patient's age to complete this topic Medical Devices Implanted Type [employer] Device Identifier Shelf Expiration Date Model / Serial / Lot Single Chamber Mri Conditional Pacemaker Implanted:05/08 by Shlomo Irizarry MD (Quantity not on file) Standard Pacemaker [employer] ESSENTIO MRI SR [id number] / [id number] / Procedures Procedure Name Priority Date/Time Associated Diagnosis Comments HPV THIN PREP Routine 04/29/2022 12:00 PM CDT ANTI HIV 1/2 Routine 10/07/2020 3:22 PM PUBLIC INTERVIEWER Screen for STD (sexually transmitted disease) ANTI HCV Routine 10/07/2020 3:22 PM PUBLIC INTERVIEWER Screen for STD (sexually transmitted disease) from Last 3 Months or Most Recently Relevant to Health Maintenance Results * HPV HIGH RISK (04/29/2022 12:00 PM CDT) TYPE 16 Negative Negative 05/04/2022 3:25 PM CDT [facility] TYPE 18 Negative Negative 05/04/2022 3:25 PM CDT [facility] OTHER HIGH RISK TYPES Negative Negative 05/04/2022 3:25 PM CDT [facility] Other (Cervical) 04/29/2022 12:00 PM CDT 04/30/2022 5:16 PM CDT Narrative [facility] - 05/04/2022 3:25 PM CDT HPV types 16, 18, 31, 33, 35, 39, 45, 51, 52, 56, 58, 59, 66 and 68 DNA were undetectable or below the pre-set threshold. Methodology: Hannah Rafaela 4800 HPV Test Zainab Velásquez WEATHERIZATION INSTALLER MICROBIOLOGY [facility] [address] [place] [address], * ANTI HCV (10/07/2020 3:22 PM PUBLIC INTERVIEWER) [facility] [place] HEPATITIS C ANTIBODY Non-React papa Non-React papa 10/07/2020 7:07 PM PUBLIC INTERVIEWER [facility] Comment:Antibodies to HCV no t detected; does not exclude the possibility of exposure to HCV. Blood BLOOD SPECIMEN / Unknown Venipuncture / Unknown 10/07/2020 3:22 PM PUBLIC INTERVIEWER 10/07/2020 3:22 PM PUBLIC INTERVIEWER Soila REED SEND OUTS [facility] [address] [place] [address], * ANTI HIV 1/2 (10/07/2020 3:22 PM PUBLIC INTERVIEWER) Pathologist [facility] HIV-1/HIV-2 ANTIBODY Non-Reacti ve Non-Reacti ve 10/07/2020 7:09 PM PUBLIC INTERVIEWER [facility] Comment:HIV-1 p24 and HIV-1/ HIV-2 Ab not detected. Blood BLOOD SPECIMEN / Unknown Venipuncture / Unknown 10/07/2020 3:22 PM PUBLIC INTERVIEWER 10/07/2020 3:22 PM PUBLIC INTERVIEWER Soila REED SEND OUTS [facility] [address] [place] [address], from Last 3 Months or Most Recently [...] 9:40 AM 04/17/2020 12:37 PM Care Teams Rental Sales Representative Relationship Specialty Start Date End Date Devendra Mccann MD [address] [place] [address] PCP - General Family Practice 03/06/20
--- OUTSIDE RECORDS SUMMARY | 2024-02-04 14:29 | XMS_ITS | Encounter Summary ---
Author Name Unknown Organization [place] Address [facility] [place] [address] Care Team Providers Care Home Care Music Therapist Name Role Phone Thom Jones MD Primary Care Provider Joy Mallory MD Unavailable [phone] Maury Mccann Primary Care Provider [phone] Kade Edomnds MD Unavailable [phone] Encounter Details Date Type Department Care Team (Late st Contact Info) Description 09/27/2020 Orders Only [facility] OR [address] [place] [address] Carmine Mcgrath MD [facility] [address] [place] [address] Encounter for screening for other viral diseases [...] Virus (Coronavirus) by PCR (10/18/2020 2:47 PM MUSEUM ARCHIVIST) COVID-19 Virus PCR to [facility] [place] - Source Nasopharyngeal 10/18/2020 2:[address] [facility] COVID-19 Virus PCR to [facility] [place] - Result Test received-See reflex to IDDL test SARS CoV2 (COVID-19) Virus RT-PCR 10/18/2020 6:37 PM MUSEUM ARCHIVIST [facility], [facility] Specimen from nasopharyngeal structure (specimen) 10/18/2020 2:47 PM MUSEUM ARCHIVIST 10/18/2020 2:48 PM MUSEUM ARCHIVIST Carmine Mcgrath MD LAB - MICRO GENERAL ORDERABLES INF[facility] DISE[facility], [facility] [address] [place] [address], [facility] [address] [place], [place] [address] [phone] documented in this encounter Visit Diagnoses Diagnosis Encounter for screening for other viral diseases documented in this encounter Care Teams Home Care Music Therapist Relationship Specialty Start Date End Date Thom Jones MD PCP - General Family Practice 09/10/16 10/21/20 Maury Mccann [address] [place] [address] PCP - General Family Medicine 10/22/20 Joy Mallory MD Ophthalmology 01/31/18 Kade Edmonds MD [address] [place] [address] Assigned Surgical Provider 11/21/22 [facility] [address] [place] [address], [address] [place] [address] Referring Physician Ophthalmology 09/10/16 documented as of this encounter
--- OUTSIDE RECORDS SUMMARY | 2024-02-04 14:30 | XMS_ITS | Encounter Summary ---
Author Name Unknown Organization [place] Address [address] [place] [address] Care Team Providers Care Buttermaker Helper Name Role Phone Thom Jones MD Primary Care Provider [phone] Joy Mallory MD Unavailable [phone] Maury Mccann Primary Care Provider [phone] Kade Edmonds MD Unavailable [phone] Encounter Details Date Type Department Care Team (Late st Contact Info) Description 03/01/2018 Telephone [facility] [place] [id number] [facility] 9[facility] [address] [place] [phone] Kade Edmonds MD [address] [place], [place] [phone] Social History Tobacco Use Types Packs/Day Years [...] on filedocumented in this encounter Care Teams Buttermaker Helper Relationship Specialty Start Date End Date Thom Jones MD PCP - General Family Practice 09/10/16 10/21/20 Maury Mccann [address] [place] [address] [place] [address] PCP - General Family Medicine 10/22/20 Joy Mallory MD Ophthalmology 01/31/18 Kade Edmonds MD [address] [place] [address] Assigned Surgical Provider 11/21/22 [facility] [address] [place] [address], [address] [place] [address] Referring Physician Ophthalmology 09/10/16 documented as of this encounter
== END 2024-02-04 14:28 | disposition home or self-care (01) ==
LOC: MAMMO 14:28
PROVIDERS: PCP Family Medicine; Visit Provider Family Medicine
DX: Z12.31 Encounter for screening mammogram for malignant neoplasm of breast (principal); R92.2 Inconclusive mammogram; Z01.419 Encounter for gynecological examination (general) (routine) without abnormal findings; R03.0 Elevated blood-pressure reading, without diagnosis of hypertension; N92.0 Excessive and frequent menstruation with regular cycle; R53.83 Other fatigue; Z11.3 Encounter for screening for infections with a predominantly sexual mode of transmission; Z13.1 Encounter for screening for diabetes mellitus; Z13.9 Encounter for screening, unspecified
CPT/HCPCS: 77063; 77067; 80053; 82306; 84443; 87491; 87591

== ENCOUNTER 2024-02-24 07:16 | Outpatient (CLI) | payer BC, SELFPAY ==
--- NOTE | 2024-02-24 07:15 | US_ITS ---
Patient: LEANA GUY Facility:?[facility] Patient ID:?[id number] Site Patient ID:?[id number]. Site :?[id number] Study:?US-Pelvis PELVIS TA & TV-02/24/2024 7:57:47 AM Ordering Physician:?HEIDI PETERSON CNP Final Report: INDICATION: Menorrhagia COMPARISON: none TECHNIQUE: 2D ramirez scale and color Doppler images were acquired of the pelvis using a transabdominal and transvaginal approach. FINDINGS: Sonographic images demonstrate a normal size and smooth outer contour of the uterus. Uterus measures 9.4 cm in length by 5.8 cm in AP diameter by 5.8 cm in transverse dimension. The myometrium has a heterogeneous echotexture. The endometrial lining measures 6 mm in composite thickness. The right ovary measures 3.5 x 1.8 x 2.3 cm in size and the left ovary measures 2.9 x 1.8 x 1.9 cm. The ovaries demonstrate normal arterial and venous blood flow on color Doppler analysis. There are no suspicious fluid collections within the cul-de-sac. Incidental benign collapsing cyst right ovary measures 1.7 cm. IMPRESSION: Endometrial thickness 6 millimeters. Heterogeneous uterine echotexture without defined leiomyoma. Dictated by Thom Dc MD @ 02/24/2024 12:54:28 PM Signed by:?Thom Dc MD @02/24/2024 12:54:28 PM (Electronic Signature)
--- OUTSIDE RECORDS SUMMARY | 2024-02-24 07:18 | XMS_ITS | Clinical Summary ---
Author Name Unknown Organization [facility] Address [place], [place] [address] Care Team Providers Care Mental Health Advanced Practice Nurse Name Role Phone Devendra Mccann MD Primary [...] Dispensed Refills Start Date End Date Status sertraline (ZOLOFT) 100 mg tablet Take 150 mg by mouth at bedtime. 2 Active aspirin chewable 81 mg chewable tabletIndications: Malfunction of cardiac pacemaker, initial encounter Chew 1 Tablet (81 mg) by mouth once daily. 30 Tablet 4 Active oxyCODONE-acetamin ophen (PERCOCET) 5-325 mg per tabletIndications: S/P cardiac pacemaker procedure Take 1-2 Tablets by mouth every 6 hours if needed for Pain. Max acetaminophen dose: 4000mg in 24 hrs. 10 Tablet 4 Active ibuprofen (ADVIL; MOTRIN) 600 mg tabletIndications: Adhesive capsulitis of left shoulder Take 1 Tablet (600 mg) by mouth every 6 hours if needed for Pain. Maximum of 3200 mg in 24 hours. 30 Tablet 2 02/04/20 24 Discontinued( Pharmacist change per medication history (E-cancel not sent)) cyclobenzaprine (FLEXERIL) 10 mg tabletIndications: Acute nonintractable headache, unspecified headache type Take 1 Tablet (10 mg) by mouth 3 times daily if needed for Muscle Spasm. 15 Tablet 2 02/04/20 24 Discontinued( Pharmacist change per medication history (E-cancel not sent)) cyclobenzaprine (FLEXERIL) 10 mg tabletIndications: Migraine without aura and without status migrainosus, not intractable Take 1 Tablet (10 mg) by mouth 3 times daily if needed for Muscle Spasm. 30 Tablet 2 02/04/20 24 Discontinued( Pharmacist change per medication history (E-cancel not sent)) ondansetron (ZOFRAN ODT) 4 mg disintegrating tabletIndications: Migraine without aura and without status migrainosus, not intractable Place 1 Tablet (4 mg) on the tongue every 8 hours if needed for Nausea/Vomiting. 20 Tablet 2 02/04/20 24 Discontinued( Pharmacist change per medication history (E-cancel not sent)) albuterol HFA (PRO-AIR; VENTOLIN; PROVENTIL) 90 mcg/actuation inhalerIndications :Acute cough Inhale 1-2 Puffs by mouth every 6 hours if needed (Cough). 1 Each 3 02/15/20 24 Discontinued( Pharmacist change per medication history (E-cancel not sent)) Ventolin HFA 90 mcg/actuation inhalerIndications :Bronchitis INHALE TWO PUFFS BY MOUTH EVERY 4 HOURS WHILE AWAKE 1 Each 3 02/04/20 24 Discontinued( Pharmacist change per medication history (E-cancel not sent)) Active Problems Problem Noted Date Diagnosed Date Bradycardia 02/04/2024 Pacemaker malfunction 02/04/2024 Adhesive capsulitis of left shoulder 12/24/2021 Anal [...] Encounters Date Type Department Care Team Description 02/23/2024 Lab Requisition [facility] [phone] Zainab Velásquez NP 02/22/2024 1:30 PM CDT Office Visit [address] [phone] Devendra Mccann MD Wound Check (Suture removal) 02/22/2024 Travel 02/21/[address] [phone] Devendra Mccann MD Follow Up 02/18/2024 Telephone [facility] [place] [address] [phone] Kam Rodríguez MD Concerns 02/17/2024 Refill [facility] [address] [address] Constantin Diaz NP Refill Request 02/17/2024 Telephone [facility] [place] [address] [phone] Kam Rodríguez MD Medication Management 02/15/2024 8:32 AM CDT Anesthesia Event [facility] [address] [place] [phone] Reyes Bell MD Beulke, Steven William, ERNESTINE 02/15/2024 6:26 AM CDT - 02/16/2024 1:57 PM CDT Hospital Encounter [facility] [address] [place] [phone] Kam Rodríguez MD Bradycardia (Primary Dx); Sinus node dysfunction (HC); S/P cardiac pacemaker procedure; Malfunction of cardiac pacemaker, initial encounter Discharge Disposition: Home Self Care 02/15/2024 Travel 02/07/2024 Telephone [facility] [place] [address] [phone] Trish Fuller RN EP Procedure 02/07/2024 Lab Requisition [facility] [phone] Zaianb Velásquez NP 02/04/2024 6:02 PM CDT - 02/05/2024 2:16 PM CDT Hospital Encounter [facility] [address] [address] Chirag Camilo MD [facility] Mark Sullivan MD Berglund, Brian Lukas, MD Failure of pacemaker lead, initial encounter (Primary Dx); Bradycardia Discharge Disposition: Home Self Care 02/04/2024 Travel 02/04/2024 Telephone [facility] [address] [facility] [address] [place] [address] Shlomo Irizarry MD Pacemaker Problem 12/28/2023 Telephone [facility] [address] [place] [address] Shlomo Irizarry MD Device Check [...] PHQ-2 Answer Date Recorded PHQ-2 TOTAL SCORE 0 02/22/2024 Social Connections Answer Date Recorded Frequency of Communication with Friends and Fami ly 0 02/22/2024 Financial Resource Strain Answer Date R ecorded Difficulty of Paying Living Expenses 3 02/22/2024 Difficulty of Paying Living Expenses Not on file 02/22/2024 Food Insecurity Answer Date Recorded Worried About Running Out of Food in the Last Ye ar 1 02/22/2024 Transportation Needs Answer Date Record ed Lack of Transportation (Medical) 1 02/22/2024 Housing Stability Answer Date Recorded Unable to Pay for Housing in the Last Year 1 02/22/2024 Sex and Gender Information Value Date Recorded Sex Assigned at Female 11/24/2021 7:04 PM BARREL RACER Gender Identity Female 11/24/2021 7:04 PM BARREL RACER Sexual Orientation Straight 11/24/2021 7: 04 PM BARREL RACER Obstetrics History Para Term AB IAB SAB [...] 8 9 [place] Delivery Location:[facility] 09/30 Term 39w 2d 3.54 kg (7 lb 13 oz) F Vag Bev ng 8 9 [place] Delivery Location:[facility] 01/25 SAB 8w0 d SPONTANEO US 07/07 SAB 12w 0d SPONTANEO US 11/19 Ectopic 5w0 d ECTOPIC Sánchez Delivery Location:[facility] Comments:ruptured righ t ectopic Last Filed Vital Signs Vital Sign Reading Time Taken Comments Blood Pressure 148/78 02/22/2024 1:28 PM CDT Pulse 80 02/22/2024 1:25 PM CDT Temperature 36.3 ??C (97.4 ??F) 02/16/2024 8:34 AM CD T Respiratory Rate 16 02/22/2024 1:25 PM CDT Oxygen Saturation 96% 02/16/2024 8:34 AM CDT Inhaled Oxygen Concentration - - Weight 107 kg (235 lb 12.8 oz) 02/22/2024 1:25 P M CDT Height 173.2 cm (5' 8.2) 02/22/2024 1:25 PM CDT Body Mass Index 35.64 02/22/2024 1:25 PM CDT Plan of Treatment Upcoming Encounters Date Type Department Care Team (Late st Contact Info) Description 03/22/2024 10:00 AM CDT Cardiac Device Check [facility] at [address] [phone] 06/21/2024 8:30 AM CDT Cardiac Device Check [facility] [address] [place] [address] Health Maintenance Due Date Last Done Comments Tetanus booster 08/15/2022 08/15/2012, 09/10, 04/05/1997 COVID-19 vaccine series (2022- season) 2023 Influenza for age 9-49 06/11/2024 06/22/2012 BMI (ht and wt on same day) for age 18+ 02/21/2025 02/22/2024, 10/14/2020, 06/14/2020, Additional history exists Depression screening for age 12+ 02/21/2025 02/22/2024, 10/14/2020, 10/07/2020, Additional history exists Pap test for age 21-65 02/03/2029 , 04/29/2022, 04/29/2022, Additional history exists Tdap Completed 08/15/2012 HIV for age 15-65 Completed 10/07/2020, 03/25/2012 Hepatitis C screening for age 18-79 Completed 10/07/2020 Pneumococcal series for age 6-64 Aged Out No longer eligible based on patient's age to complete this topic Medical Devices Implanted Type Area Brim Molder Device Identifier Shelf Expiration Date Model / Serial / Lot Single Chamber Mri Conditional Pacemaker Implanted:05/08 by Shlomo Irizarry MD (Quantity not on file) Standard Pacemaker [employer] ESSENTIO MRI SR [id number] / [id number] / Procedures Procedure Name Priority Date/Time Associated Diagnosis Comments ECHO TTE LIMITED W CONTRAST W COLOR W DOPPLER FREDA 02/16/2024 12:58 PM CDT EKG 12 LEAD Routine 02/16/2024 11:00 AM CDT PACER LIN SINGLE CHAMBER WO REPROG Routine 02/16/2024 10:33 AM CDT SCAN-CARDIAC STRIP 02/16/2024 10 :05 AM CDT XR CHEST 2 VIEWS PA AND LATERAL Routine 02/16/2024 6:47 AM CDT SCAN-CARDIAC STRIP 02/16/2024 5: 49 AM CDT SCAN-CARDIAC STRIP 02/15/2024 6: 17 PM CDT CV PROCEDURE TO BE PERFORMED Routine 02/15/2024 11:51 AM CDT ENDOTRACHEAL TUBE Routine 02/15/2024 10: 53 AM CDT ENDOTRACHEAL TUBE Routine 02/15/2024 10: 53 AM CDT ENDOTRACHEAL TUBE Routine 02/15/2024 10: 53 AM CDT DOMONIQUE Routine 02/15/2024 10:53 AM CDT ARTERIAL LINE Routine 02/15/2024 10:52 AM CDT ARTERIAL LINE Routine 02/15/2024 10:52 AM CDT ARTERIAL LINE Routine 02/15/2024 10:52 AM CDT ARTERIAL LINE Routine 02/15/2024 10:52 AM CDT ARTERIAL LINE Routine 02/15/2024 10:52 AM CDT ARTERIAL LINE Routine 02/15/2024 10:52 AM CDT EP OTHER PROCEDURE Routine 02/15/2024 9: 21 AM CDT RBC W/O TYPE & SCREEN STAT 02/15/2024 8:39 AM CDT RED BLOOD CELLS EA UNIT STAT 02/15/2024 8:39 AM CDT RED BLOOD CELLS EA UNIT STAT 02/15/2024 8:39 AM CDT EKG 12 LEAD Preop 02/15/2024 7:09 AM CDT TYPE & SCREEN Preop 02/15/2024 6:49 AM CDT EXTRA TUBE LAVENDER FREDA 02/15/2024 6 :49 AM CDT BASIC METABOLIC PANEL Preop 02/15/2024 6:49 AM CDT CBC W PLT NO DIFF Preop 02/15/2024 6:4 9 AM CDT URINE Preop 02/15/2024 6:40 AM CDT SCAN-CARDIAC STRIP 02/15/2024 12 :00 AM CDT ECHO TTE COMPLETE WO CONTRAST FREDA 02/05/2024 1:56 PM CDT PACER LIN DUAL CHAMBER W REPROG Routine 02/05/2024 10:43 AM CDT SCAN-CARDIAC STRIP 02/05/2024 7: 34 AM CDT MAGNESIUM Early AM 02/05/2024 6:26 AM CDT CREATININE Early AM 02/05/2024 6:26 AM CDT POTASSIUM Early AM 02/05/2024 6:26 AM CDT SODIUM Early AM 02/05/2024 6:26 AM CDT MAGNESIUM STAT 02/04/2024 7:30 PM CDT TSH STAT 02/04/2024 7:30 PM CDT BASIC METABOLIC PANEL STAT 02/04/2024 7:30 PM CDT CBC W PLT NO DIFF STAT 02/04/2024 7:3 0 PM CDT PACER LIN SINGLE CHAMBER W REPROG Routine 02/04/2024 6:58 PM CDT EKG 12 LEAD STAT 02/04/2024 5:56 PM CDT LAB TRACKING EVENT Routine 02/04/2024 2: 15 PM CDT PUTTY AND CAULKING SUPERVISOR THIN PREP PAP SCREEN IMAGED- Unsuccessful Attempt Routine 02/04/2024 2:15 PM CDT HPV THIN PREP Routine 02/04/2024 2:15 PM CDT ANTI HIV 1/2 Routine 10/07/2020 3:22 PM BARREL RACER Screen for STD (sexually transmitted disease) ANTI HCV Routine 10/07/2020 3:22 PM BARREL RACER Screen for STD (sexually transmitted disease) from Last 3 Months or Most Recently Relevant to Health Maintenance Results * ECHO TTE LIMITED W CONTRAST W COLOR W DOPPLER (02/16/2024 12:58 PM CDT) AORTIC VALVE MEAN PG 4 mmHg EJECTION FRACTION 66 % PEAK TR VELOCITY 2.0 m/s LVEDD 5.5 cm EJECTION FRACTION 65 - 70% Anatomical Region Laterality Modality Ultrasound 02/16/2024 11:2 7 AM CDT Narrative 02/16/2024 1:05 PM CDT ECHOCARDIOGRAM LEANA GUY ? Accession#: ?? [id number] : ?1980 44 years Study Date: ?? 02/16/2024 11:27:40 AM Gender: F ?BP: ? 140/70 mmHg Height: 175.00 cm ?BSA: ?2.21 m? ? ? Weight: 107.00 kg ?Tech: ? HR-TRVL ? Referring MD: CONSTANTIN DIAZ Site: ? [facility] Reading Location: [facility] IP Patient Location: Inpatient. Procedure: Color Doppler, Limited Spectral Doppler and Limited Echo w/ Contrast. Indication for study: Rule out Pericardial Effusion Cardiac Rhythm: Regular.Study quality: Technically limited. Final Impressions: Limited Echocardiogram performed 1. Technically limited exam. 2. Normal LV size, normal wall thickness, normal function with an estimated EF of 65 - 70%. 3. Right ventricular cavity size is normal, global systolic RV function is normal. 4. No significant valve disease detected. 5. No pericardial effusion. Comparison Compared to prior exam of 02/15/24, there has been no significant change. Chamber Sizes and Function Normal left ventricular size, normal wall thickness, normal global systolic function with an estimated EF of 65 - 70%. Left atrial size is normal. Right ventricular cavity size is normal, global systolic RV function is normal. The right atrium is mildly enlarged. The pulmonary artery is of normal size and origin. The sinus of Valsalva is normal sized. Valves, RV Pressures and Diastolic Function The aortic valve is normal in structure, and no regurgitation. The mitral valve is normal in structure, trace mitral regurgitation. The tricuspid valve is normal in structure. Tricuspid regurgitation is not evident. The tricuspid regurgitant velocity is 2.0 m/s, the estimated right ventricular systolic pressure is 16 mmHg plus right atrial pressure. The pulmonic valve is normal. No pulmonic regurgitation is present on color flow. Masses, Effusion, Shunts There is no pericardial effusion. The inferior vena cava is normal sized, respiratory size variation greater than 50%. MEASUREMENTS AND CALCULATIONS 2-D Measurements and LV Function: LVID (d) 5.5 cm LV FS% (2D) ?? 44 % LVID (s) 3.1 cm LVOT diameter 2.2 cm IVS (d) ??0.7 cm HR ?60 bpm LVPW (d) 0.8 cm Ao Sinus 3.6 cm LA ? 3.0 cm Aortic Valve: Vmax ? 1.3 m/s ??CLOVIS (V) ?? 2.77 cm? ? ? VTI ?0.29 m ?? CLOVIS (I) ?? 2.72 cm? ? ? LVOT V max 1.0 m/s ??Max PG ?7 mmHg LVOT VTI ?? 0.21 m ?? Mean PG ?? 4 mmHg SV ? 79 ml ?Dim Index 0.72 SV index ?? 36 ml/m? ? ? CO ?4.8 l/min ?CI ?2.1 l/min/m? ? ? Tricuspid Valve and estimated PA pressures: TR Vmax 2.0 m/s TR maxG 16 mmHg Pulmonic Valve: PV Vmax 0.9 m/s . This study was interpreted by an [facility] accredited facility. ??Final ?? Procedure Note Trevor Reyna MD - 02/16/2024 ECHOCARDIOGRAM LEANA GUY : 1980 44 years Study Date: 02/16/2024 11:27:40 AM Gender: F BP: 140/70 mmHg Height: 175.00 cm BSA: 2.21 m? ? ? Weight: 107.00 kg Tech: HR-TRVL Referring MD: CONSTANTIN DIAZ Site: [facility] Reading Location: [facility] Patient Location: Inpatient. Procedure: Color Doppler, Limited Spectral Doppler and Limited Echo w/Contrast. Indication for study: Rule out Pericardial Effusion Cardiac Rhythm: Regular.Study quality: Technically limited. Final Impressions: Limited Echocardiogram performed 1. Technically limited exam. 2. Normal LV size, normal wall thickness, normal function with anestimated EF of 65 - 70%. 3. Right ventricular cavity size is normal, global systolic RV functionis normal. 4. No significant valve disease detected. 5. No pericardial effusion. Comparison Compared to prior exam of 02/15/24, there has been no significantchange. Chamber Sizes and Function Normal left ventricular size, normal wall thickness, normal globalsystolic function with an estimated EF of 65 - 70%. Left atrial size isnormal. Right ventricular cavity size is normal, global systolic RVfunction is normal. The right atrium is mildly enlarged. The pulmonaryartery is of normal size and origin. The sinus of Valsalva is normalsized. Valves, RV Pressures and Diastolic Function The aortic valve is normal in structure, and no regurgitation. The mitralvalve is normal in structure, trace mitral regurgitation. The tricuspidvalve is normal in structure. Tricuspid regurgitation is not evident. Thetricuspid regurgitant velocity is 2.0 m/s, the estimated right ventricularsystolic pressure is 16 mmHg plus right atrial pressure. The pulmonicvalve is normal. No pulmonic regurgitation is present on color flow. Masses, Effusion, Shunts There is no pericardial effusion. The inferior vena cava is normal sized,respiratory size variation greater than 50%. MEASUREMENTS AND CALCULATIONS 2-D Measurements and LV Function: LVID (d) 5.5 cm LV FS% (2D) 44 % LVID (s) 3.1 cm LVOT diameter 2.2 cm IVS (d) 0.7 cm HR 60 bpm LVPW (d) 0.8 cm Ao Sinus 3.6 cm LA 3.0 cm Aortic Valve: Vmax 1.3 m/s CLOVIS (V) 2.77 cm? ? ? VTI 0.29 m CLOVIS (I) 2.72 cm? ? ? LVOT V max 1.0 m/s Max PG 7 mmHg LVOT VTI 0.21 m Mean PG 4 mmHg SV 79 ml Dim Index 0.72 SV index 36 ml/m? ? ? CO 4.8 l/min CI 2.1 l/min/m? ? ? Tricuspid Valve and estimated PA pressures: TR Vmax 2.0 m/s TR maxG 16 mmHg Pulmonic Valve: PV Vmax 0.9 m/s . This study was interpreted by an [facility] accredited facility. Final Constantin Diaz NP ECHO ORD * EKG 12 LEAD (02/16/2024 11:00 AM CDT) Only the most recent of3 resultswithin the time period is included. Interpretation Atrial-paced rhythm Low voltage QRS Abnormal ECG When compared with ECG of 15-FEB-2024 07:09, Electronic atrial pacemaker has replaced Electronic ventricular pacemaker Vent. rate has decreased BY ??47 BPM BEYOND NOW Ventricular Rate 60 BPM BEYOND NOW Atrial Rate 60 BPM BEYOND NOW P-R Interval 178 ms BEYOND NOW QRS Duration 98 ms BEYOND NOW QT 456 ms BEYOND NOW QTc 456 ms BEYOND NOW P Champion 57 degrees BEYOND NOW R Champion 37 degrees BEYOND NOW T Champion 41 degrees BEYOND NOW 02/16/2024 11:0 0 AM CDT 02/17/2024 4:02 PM CDT Constantin Diaz FLUID JET CUTTER OPERATOR EKG ORD BEYOND NOW [place], [place] * PACER LIN SINGLE CHAMBER WO REPROG [[id number]] (02/16/2024 10:33 AM CDT) Narrative Kam Rodríguez MD - 02/16/2024 10:33 AM CDT Mis Greenwood RN ? 02/16/2024 11:17 AM PACEMAKER EVALUATION REPORT February 16, 2024 Indication for Pacemaker: Sinus Node Dysfunction Primary MD: Devendra Mccann MD Implanting MD: Shlomo Irizarry MD. Lead Revision/Generator Change: Dr. Rodríguez DEVICE DATA - MV Oversensing Advisory 09/2017 [employer]: [id number] ACCOLADE MRI SM [id number] Implant Date 02/15/24 LEAD DATA Atrial Lead: Med[employer]onic: [id number] SelectSecure MRI SureScan SN: [id number] Implant Date 02/15/24 Visit location: H528 Reason For Evaluation: Routine: POD #1 MEASUREMENTS Atrial Sensing - P wave: 6.1 mV Atrial Capture: ??0.4 V @ 0.4 ms Atrial Lead Impedance: 821 ohms bipolar Underlying Rhythm: ~ 32 bpm. DIAGNOSTIC DATA - Since 02/14/27 Atrial paced: 96% Atrial Episodes (>160 bpm): None ? Associated Symptoms: None reported. Appropriate intrinsic heart rate distribution for lifestyle Magnet rate: 100 bpm ??Estimated Battery Longevity: >8 years FINAL PARAMETERS Mode: AAI Lower rate: 60 bpm ?? Rate Response: OFF Atrial - Amplitude: 3.5 V ??Pulse width: 0.4 ms ?? AGC 1.5 mV Polarity: Bipolar Changes made: Device temporarily reprogrammed, iterative adjustments made during interrogation/testing. No permanent changes made. Conclusions: Normal pacemaker function. ??Patient education post-device implant complete. Discussed incision care, signs and symptoms of infection, activity restrictions, indication for implant & device mechanics. Education folder was reviewed and given to patient. Remote monitoring was discussed. Patient was encouraged to call if he/she has any concerns or questions in the future. Patient previously enrolled in [facility] and patient has a home monitor. Follow up: 4 month clinic appointment provided for 06/21/24 at 8:30 at [facility] Routine is every 4 months via [facility] with annual [place] (or [facility] if seeing Dr. Irizarry) each February/March. Mis Greenwood, RN Nurse Clinician II [facility] Pacemaker/ICD Clinic [phone] Shlomo Irizarry MD CARDIAC SERVICES ORD * SCAN-CARDIAC STRIP (02/16/2024 10:05 AM CDT) Scanner OTHER * XR Chest PA and Lateral (02/16/2024 6:47 AM CDT) Anatomical Region Laterality Modality CHEST, THORAX, Lung, HEART Digit al Radiography 02/16/2024 6:54 AM CDT Impressions 02/16/2024 6:54 AM CDT Left-sided pacer with lead terminating in the right atrium. Minimal atelectasis at the bases. No pleural effusion or pneumothorax Dictated by Shlomo Gill MD @ February ??2023 ??6:54AM (Electronically Signed) [email or web address] Narrative 02/16/2024 6:54 AM CDT For Patients: ??As a result of the Century Cures Act, medical imaging exams and procedure reports are released immediately into your electronic medical record. ??You may view this report before your referring provider. ??If you have questions, please contact your health care provider. INDICATION: Pacer placement COMPARISON: March 19, 2022 TECHNIQUE: Two views of the chest were acquired FINDINGS: TUBES AND LINES: Left-sided pacer with lead terminating in the right atrium. HEART AND MEDIASTINUM: Heart size top normal. LUNGS AND PLEURAL SPACES: Minimal areas of atelectasis at the bases.No pleural effusion or pneumothorax OSSEOUS STRUCTURES: Age-appropriate appearance. No acute focal finding. Procedure Note Shlomo Gill MD - 02/16/2024 For Patients: As a result of the Century Cures Act, medical imagingexams and procedure reports are released immediately into your electronicmedical record. You may view this report before your referring provider.If you have questions, please contact your health care provider. INDICATION: Pacer placement COMPARISON: March 19, 2022 TECHNIQUE: Two views of the chest were acquired FINDINGS: TUBES AND LINES: Left-sided pacer with lead terminating in the rightatrium. HEART AND MEDIASTINUM: Heart size top normal. LUNGS AND PLEURAL SPACES: Minimal areas of atelectasis at the bases.Nopleural effusion or pneumothorax OSSEOUS STRUCTURES: Age-appropriate appearance. No acute focal finding. IMPRESSION: Left-sided pacer with lead terminating in the right atrium. Minimalatelectasis at the bases. No pleural effusion or pneumothorax Dictated by Shlomo Gill MD @ Feb 16 2024 6:54AM (Electronically Signed) [email or web address] Kam Rodríguez MD GENERAL IMAGING * SCAN-CARDIAC STRIP (02/16/2024 5:49 AM CDT) Scanner OTHER * SCAN-CARDIAC STRIP (02/15/2024 6:17 PM CDT) Scanner OTHER * EP Procedure to be Performed (02/15/2024 11:51 AM CDT) Narrative Kam Rodríguez MD - 02/15/2024 11:51 AM CDT Kam Rodríguez MD ? 02/15/2024 11:53 AM Cardiac Electrophysiology Immediate Post Procedure Note Preoperative Diagnosis: ??Atrial lead malfunction Procedure: ??successful extraction of old atrial lead using excimer laser and replacement with 3830 atrial lead with new pacemaker generator with pocket modification Findings/Conclusions: ??successful laser extraction and replacement of atrial lead Postoperative Diagnosis: ??Same as preoperative diagnosis Complications: ??None Personally monitored patient with conscious sedation during procedure: General anesthesia Estimated Blood Loss: ??minimal Specimen: ??N/A Plan: Bedrest for 3 hours Device check and chest x-ray in am Surgeon: Kam Rodríguez MD Kam Rodríguez MD SUBSTANCE ABUSE SPECIALIST ORD * H[facility]G TUBE PR1, HCHG STYLET PR1, HCHG MOUTHPIECE PR1 (02/15/2024 10:53 AM CDT) Narrative Pradip Trejo CRNA - 02/15/2024 10:53 AM CDT Pradip Trejo CRNA ? 02/15/2024 10:54 AM Procedure: ETT Patient location during procedure: OR ETT Properties Mask Ventilation: easy Final Technique: direct laryngoscopy Type: straight Location: oral Cuffed: yes Tube Size: 7.5 mm Stylet: yes Laryngoscope Blade: Yarbrough Blade Size: 2 Cormack-Lehane Grade View: 1 Insertion Attempts: 1 Placement Verification: auscultation, end tidal CO2 and symmetrical chest wall movement Assessment: pharynx clear, atraumatic and dentition unchanged Secured at: 22 Measured From: lips Tooth guard used and removed: yes Bite Block: oral airway Difficulty: 0 (not difficult) Reyes Bell MD ANESTHESIA PX N OTE ORDERABLES * DOMONIQUE (02/15/2024 10:53 AM CDT) Narrative Reyes Bell MD - 02/15/2024 10:53 AM CDT Reyes Bell MD ? 02/15/2024 10:54 AM DOMONIQUE Start time: 02/15/2024 10:53 AM Completed: Patient identified, risks and benefits discussed, monitors and equipment assessed and anesthesia consent obtained. General Procedure Information Diagnostic Indications for Echo: assessment of surgical repair, hemodynamic monitoring, assessment of cardiac structure and function and elective. Physician Requesting Echo: Kam Rodríguez MD CPT Code: PPM Wire Removal Location performed: OR procedure room Probe Insertion: easy Inserted by: AnesthesiologistProbe Type: multiplane Report generated by: AnesthesiologistIntubated: yes Bite block inserted Bite block: Removed Anesthesia Information Anesthesiologist: ??Reyes Bell MD Echocardiogram Comments: ? Brief exam performed for PPM wire removal. Good LV and RV function. No pericardial effusion. Mild TR. Pacer wire seen terminating in the RA wall. After removal of the wire, no change to cardiac function. No development of pericardial effusion. Reyes Bell MD ANESTHESIA PX N OTE ORDERABLES * HCHG CATH PR5, HCHG TUBING PR1, HCHG TUBING PR20, HCHG DRSG PR1, HCHG DRSG PR5, HCHG KIT PR5 (02/15/2024 10:52 AM CDT) Narrative Reyes Bell MD - 02/15/2024 10:52 AM CDT Reyes Bell MD ? 02/15/2024 10:53 AM Arterial Line Patient location during procedure: OR Start time: 02/15/2024 8:51 AM Indications: lab sampling and monitoring Staffing Preanesthetic Checklist Completed: patient identified, risks and benefits discussed, consent obtained and timeout performed Arterial Line Patient position: supine. ??Comment:. Laterality: right Site: radial Local Anesthetic: lidocaine 1%. Securement/dressing: Biopatch applied, dressing applied. ??Comment: Vessel Hand Rug Braider Additional supplies used to locate vessel: no Needle Catheter size: 20 G. ??Comment:. Catheter length: 4.5 cm. ??Comment: Events: no complications. Reyes Bell MD ANESTHESIA PX N OTE ORDERABLES * EP OTHER PROCEDURE (02/15/2024 9:21 AM CDT) Anatomical Region Laterality Modality X-Ray Angiograph y, X-Ray Angiography 02/15/2024 9:21 AM CDT Kam Rodríguez MD CV IMAGING * RBC W/O TYPE & SCREEN (02/15/2024 8:39 AM CDT) QUANTITY 2 02/15/2024 8:3 9 AM CDT [facility] BLOOD BANK Blood BLOOD SPECIMEN / Unknown 02/15/2024 8:36 AM CDT Kam Rodríguez MD BLOOD BANK [facility] BLOOD BANK [address] [place] [address], * RED BLOOD CELLS EA UNIT (02/15/2024 8:39 AM CDT) Only the most recent of2 resultswithin the time period is included. CROSSMATCH Compatible Compatible [facility] PRODUCT BLOOD TYPE O Rh Positive [facility] PRODUCT ID NUMBER [id number] [facility] BLOOD BANK PRODUCT STATUS /Relea sed [facility] [employer] LAB-CENTRAL LAB BLOOD BANK PRODUCT DESCRIPTION RBC -1 LR [facility] [employer] LAB-CENTRAL LAB BLOOD BANK PRODUCT CODE [id number] [facility] Kam Rodríguez MD BLOOD BANK [facility] Publishing[facility]ENTRAL LAB BLOOD BANK [address] [place] [address], * EXTRA TUBE LAVENDER (02/15/2024 6:49 AM CDT) Blood BLOOD SPECIMEN / Unknown Non-Lab Venipuncture / Unknown 02/15/2024 6:49 AM CDT 02/15/2024 6:59 AM CDT Kam Rodríguez MD LABORATORY [facility] [address] * Type and Screen (02/15/2024 6:49 AM CDT) ABORH O Rh Positive 02/15/2024 7:49 AM CDT [facility] Publishing-[facility] LAB BLOOD BANK ANTIBODY SCREEN Negative Negative 02/15/2024 7:49 AM CDT [facility] BLOOD BANK SPECIMEN EXPIRATION DATE/TIME 02/18/24 23:59 02/15/2024 7:49 AM CDT [facility]ITALReglareCENTRAL LAB BLOOD BANK Blood BLOOD SPECIMEN / Unknown Venipuncture / Unknown 02/15/2024 6:49 AM CDT 02/15/2024 6:55 AM CDT Kam Rodríguez MD BLOOD BANK [facility] LAB BLOOD BANK [address] [place] [address], [place] [phone] * CBC with Platelets no Differential (02/15/2024 6:49 AM CDT) Only the most recent of2 resultswithin the time period is included. WHITE BLOOD COUNT 10.0 4.5 - 11.0 thou/cu mm 02/15/2024 7:03 AM CDT [facility] RED BLOOD COUNT 4.87 4.00 - 5.20 mil/cu mm 02/15/2024 7:03 AM CDT [facility] HEMOGLOBIN 14.6 12.0 - 16.0 g/dL 02/15/2024 7:03 AM CDT [facility] HEMATOCRIT 43.4 33.0 - 51.0 % 02/15/2024 7:03 AM T [facility] MCV 89 80 - 100 fL 02/15/2024 7:03 AM CDT [facility] MCH 30.0 26.0 - 34.0 pg 02/15/2024 7:03 AM CDT [facility] MCHC 33.6 32.0 - 36.0 g/dL 02/15/2024 7:03 AM CDT [facility] RDW 12.5 11.5 - 15.5 % 02/15/2024 7:03 AM T [facility] PLATELET COUNT 375 140 - 440 thou/cu mm 02/15/2024 7:03 AM CDT [facility] MPV 9.4 6.5 - 11.0 fL 02/15/2024 7:03 AM CDT [facility] NRBC 0.0 % 02/15/2024 7:03 AM CDT [facility] ABS NRBC 0.0 thou /cu mm 02/15/2024 7:03 AM T [facility] Blood BLOOD SPECIMEN / Unknown Venipuncture / Unknown 02/15/2024 6:49 AM CDT 02/15/2024 6:55 AM CDT Kam Rodríguez MD HEMATOLOGY [facility] [address] [place] [address], * (ABNORMAL) Basic Metabolic Panel (02/15/2024 6:49 AM CDT) Only the most recent of2 resultswithin the time period is included. SODIUM 139 136 - 145 mmol/L 02/15/2024 7:39 AM CDT [facility] TRAL LABORATORY POTASSIUM 3.7 3.5 - 5.1 mmol/L 02/15/2024 7:39 AM T [facility] TRAL LABORATORY CHLORIDE 103 98 - 107 mmol/L 02/15/2024 7:39 AM T [facility] TRAL LABORATORY CO2,TOTAL 25 22 - 29 mmol/L 02/15/2024 7:39 AM T [facility] TRAL LABORATORY ANION GAP 11 5 - 18 02/15/2024 7:39 AM T [facility] TRAL LABORATORY GLUCOSE 108(H) 70 - 99 mg/dL 02/15/2024 7:39 AM T [facility] TRAL LABORATORY CALCIUM 9.0 8.6 - 10.0 mg/dL 02/15/2024 7:39 AM T [facility] TRAL LABORATORY BUN 8 6 - 20 mg/dL 02/15/2024 7:39 AM T [facility] TRAL LABORATORY CREATININE 0.86 0.50 - 0.90 mg/dL 02/15/2024 7:39 AM T [facility] TRAL LABORATORY BUN/CREAT RATIO 9(L) 10 - 20 7:39 AM T [facility] TRAL LABORATORY eGFR 86(L) >90 mL/min/1.7 3m2 02/15/2024 7:39 AM T [facility] TRAL LABORATORY Comment:As of 2021, eG FR is calculated by the CKD-EPI creatinine equation without race adjustment. ??eGFR can be influenced by muscle mass, exercise, and diet. ??The reported eGFR is an estimation only and is only applicable if the renal function is stable. Blood BLOOD SPECIMEN / Unknown Venipuncture / Unknown 02/15/2024 6:49 AM CDT 02/15/2024 6:55 AM CDT Kam Rodríguez MD CHEMISTRY Performing Organization Address [facility]/ZIP Co de Phone Number [facility] [address] [place] [address], * Urine (02/15/2024 6:40 AM CDT) Pathologist [facility] ,URIN E Negative Negative 02/15/2024 7:08 AM CDT [facility] LABORAT[facility] Urine URINE SPECIMEN / Unknown Non-Blood / Unknown 02/15/2024 6:40 AM CDT 02/15/2024 6:59 AM CDT Kam Rodríguez MD URINE Performing Organization Address [facility] Co de Phone Number [facility] [address] [place] [address], * SCAN-CARDIAC STRIP (02/15/2024 12:00 AM CDT) Narrative 02/15/2024 12:00 AM CDT Ordered by an unspecified provider. Other Clinical Staff OTHER * ECHO TTE COMPLETE WO CONTRAST (02/05/2024 1:56 PM CDT) AORTIC VALVE MEAN PG 3 mmHg LVEDD 4.5 cm EJECTION FRACTION 60 - 65% Anatomical Region Laterality Modality Ultrasound 02/05/2024 1:30 PM CDT Narrative 02/05/2024 4:12 PM CDT ECHOCARDIOGRAM LEANAGAYLE GUY ? Accession#: ?? [id number] : ?1980 44 years Study Date: ?? 02/05/2024 1:30:23 PM Gender: F ?BP: ? 128/62 mmHg Height: 175.00 cm ?BSA: ?2.20 m? ? ? Weight: 105.00 kg ?Tech: ? AH TRVL ? Referring MD: LIZZIE DURHAM Site: ? [facility] Reading Location: ANW IP Patient Location: Procedure: 2D, Spectral Doppler and Color Doppler. Indication for study: Complication of pacer Cardiac Rhythm: Normal sinus.Study quality: Technically limited. Imaging limitations: This study was subject to imaging limitations due to body habitus. Final Impressions: 1. Normal LV size, normal wall thickness, normal global systolic function with an estimated EF of 60 - 65%. 2. Right ventricular cavity size is normal, global systolic RV function is normal. 3. No pericardial effusion. 4. Technically limited exam. Comparison Compared to prior exam of 09/25/2015, there has been no significant change. Chamber Sizes and Function Normal left ventricular size, normal wall thickness, normal global systolic function with an estimated EF of 60 - 65%. Left atrial size is normal. Right ventricular cavity size is normal, global systolic RV function is normal. RV wall thickness is normal. Pacing wire/catheter visualized in the right ventricle. The right atrium is normal. Right atrial area is 12 cm? ? ?. The pulmonary artery is not well visualized. The sinus of Valsalva is normal sized. The ascending aorta is normal sized. Valves, RV Pressures and Diastolic Function The aortic valve is trileaflet, no stenosis and no regurgitation. The mitral valve is not well visualized, trace mitral regurgitation. Normal diastolic function. The tricuspid valve is normal in structure. Tricuspid regurgitation is regurgitation is not evident. The pulmonic valve is not well visualized. No pulmonary regurgitation. Masses, Effusion, Shunts There is no pericardial effusion. The inferior vena cava is normal sized, respiratory size variation greater than 50%. No left to right shunting was detected by limited color flow Doppler interrogation of the interatrial septum. MEASUREMENTS AND CALCULATIONS 2-D Measurements and LV Function: LVID (d) 4.5 cm LV FS% (2D) ?? 38 % LVID (s) 2.8 cm LVOT diameter 2.3 cm IVS (d) ??0.9 cm HR ?60 bpm LVPW (d) 1.0 cm RA area ? 12 cm? ? ? Ao Sinus 3.4 cm Asc Ao ?? 3.1 cm LA ? 3.0 cm Diastology: Mitral ?Tissue Doppler E Peak 0.6 m/s ??e', Septum ? 0.07 m/s A Peak 0.6 m/s ??e', Lateral ?0.07 m/s E/A ?1.0 ?E/e' Average ?? 8.02 DT ? 277 msec Aortic Valve: Vmax ? 1.3 m/s ??CLOVIS (V) ?? 3.27 cm? ? ? VTI ?0.27 m ?? CLOVIS (I) ?? 3.19 cm? ? ? LVOT V max 1.0 m/s ??Max PG ?7 mmHg LVOT VTI ?? 0.20 m ?? Mean PG ?? 3 mmHg SV ? 85 ml ?Dim Index 0.77 SV index ?? 39 ml/m? ? ? CO ?5.1 l/min ?CI ?2.3 l/min/m? ? ? Mitral Valve: MVA ?2.7 cm? ? ? MV P 1/2 80 msec Tricuspid Valve and estimated PA pressures: TAPSE 2.5 cm Pulmonic Valve: PV Vmax ??0.9 m/s PV meanG 2 mmHg PV VTI ?? 0.16 m . This study was interpreted by an [facility] accredited facility. ??Final ?? Procedure Note Immanuel Saucedo MD - 02/05/2024 ECHOCARDIOGRAM LEANA GUY : 1980 44 years Study Date: 02/05/2024 1:30:23 PM Gender: F BP: 128/62 mmHg Height: 175.00 cm BSA: 2.20 m? ? ? Weight: 105.00 kg Tech: TRVL Referring MD: LIZZIE DURHAM Site: [facility] Reading Location: ANW IP Patient Location: Procedure: 2D, Spectral Doppler and Color Doppler. Indication for study: Complication of pacer Cardiac Rhythm: Normal sinus.Study quality: Technically limited. Imaging limitations: This study was subject to imaging limitations due tobody habitus. Final Impressions: 1. Normal LV size, normal wall thickness, normal global systolic functionwith an estimated EF of 60 - 65%. 2. Right ventricular cavity size is normal, global systolic RV functionis normal. 3. No pericardial effusion. 4. Technically limited exam. Comparison Compared to prior exam of 09/25/2015, there has been no significantchange. Chamber Sizes and Function Normal left ventricular size, normal wall thickness, normal globalsystolic function with an estimated EF of 60 - 65%. Left atrial size isnormal. Right ventricular cavity size is normal, global systolic RVfunction is normal. RV wall thickness is normal. Pacing wire/cathetervisualized in the right ventricle. The right atrium is normal. Rightatrial area is 12 cm? ? ?. The pulmonary artery is not well visualized. Thesinus of Valsalva is normal sized. The ascending aorta is normal sized. Valves, RV Pressures and Diastolic Function The aortic valve is trileaflet, no stenosis and no regurgitation. Themitral valve is not well visualized, trace mitral regurgitation. Normaldiastolic function. The tricuspid valve is normal in structure. Tricuspidregurgitation is regurgitation is not evident. The pulmonic valve is notwell visualized. No pulmonary regurgitation. Masses, Effusion, Shunts There is no pericardial effusion. The inferior vena cava is normal sized,respiratory size variation greater than 50%. No left to right shunting wasdetected by limited color flow Doppler interrogation of the interatrialseptum. MEASUREMENTS AND CALCULATIONS 2-D Measurements and LV Function: LVID (d) 4.5 cm LV FS% (2D) 38 % LVID (s) 2.8 cm LVOT diameter 2.3 cm IVS (d) 0.9 cm HR 60 bpm LVPW (d) 1.0 cm RA area 12 cm? ? ? Ao Sinus 3.4 cm Asc Ao 3.1 cm LA 3.0 cm Diastology: Mitral Tissue Doppler E Peak 0.6 m/s e', Septum 0.07 m/s A Peak 0.6 m/s e', Lateral 0.07 m/s E/A 1.0 E/e' Average 8.02 DT 277 msec Aortic Valve: Vmax 1.3 m/s CLOVIS (V) 3.27 cm? ? ? VTI 0.27 m CLOVIS (I) 3.19 cm? ? ? LVOT V max 1.0 m/s Max PG 7 mmHg LVOT VTI 0.20 m Mean PG 3 mmHg SV 85 ml Dim Index 0.77 SV index 39 ml/m? ? ? CO 5.1 l/min CI 2.3 l/min/m? ? ? Mitral Valve: MVA 2.7 cm? ? ? MV P 1/2 80 msec Tricuspid Valve and estimated PA pressures: TAPSE 2.5 cm Pulmonic Valve: PV Vmax 0.9 m/s PV meanG 2 mmHg PV VTI 0.16 m . This study was interpreted by an [facility] accredited facility. Final Lizzie REED ECHO ORD * PACER LIN DUAL CHAMBER W REPROG (02/05/2024 10:43 AM CDT) Narrative Kam Rodríguez MD - 02/05/2024 10:43 AM CDT Jacki David RN ? 02/05/2024 11:07 AM PACEMAKER EVALUATION REPORT 02/05/2024 Indication for Pacemaker: Sinus Node Dysfunction Primary MD: Devendra Mccann MD Implanting MD: Shlomo Irizarry MD DEVICE DATA - MV Oversensing Advisory 09/2017 [employer]: [id number] [id number] ??Implant Date 05/08/2016 LEAD DATA Atrial Lead: Medtr[employer]: [id number] - 45 cm [id number] Implant Date 05/08/2016 Visit location: [facility] Reason For Evaluation: Sinus bradycardia 32 bpm MEASUREMENTS Atrial Sensing - P wave: 1.0-2.1 mV Bipolar and 3.3-3.6 unipolar Atrial Capture: 0.6 V @ 0.4 ms unipolar ??x3 ??Intermittent loss of capture in bipolar Atrial Lead Impedance: >3000 ohms bipolar initially and then retested 524-534 ohms bipolar and 424-429 ohms unipolar DIAGNOSTIC DATA - Since 02/04/24 Atrial paced: 97% Atrial Episodes (>160 bpm): None ? Associated Symptoms: None reported. Appropriate intrinsic heart rate distribution for lifestyle Magnet rate: 100 bpm ??Estimated Battery Longevity: 2.5 years FINAL PARAMETERS Mode: AOO Lower rate: 60 bpm ?? Rate Response: OFF Atrial - Amplitude: 2 V ??Pulse width: 0.4 ms ?? Polarity: unipolar (pace) Changes made: Programmed patient AOO 60 Conclusions: Abnormal pacemaker function. Intermittent loss of capture noted in bipolar pace today. Appropriate loss of capture in unipolar at 0.6 mV @ 0.4 ms x3. Gross oversensing noted during ROMS and pocket manipulation in unipolar as well as oversensing noted in bipolar up to 1.[address]. [address] Rodríguez who recommended patient be programmed AOO [address] Rodríguez ok with keeping outputs 2V @ 0.4 ms. Follow up: TBD post lead revision. Inbasket sent to EP lab clinicians Routine is every 4 months via Latitude with annual [place] (or ANW if seeing Dr. Irizarry) each February/March. Jacki David RN [facility] Pacemaker/ICD Clinic [phone] Lead Revision Information: Procedure needed: atrial lead replacement or revision Reason: lead revision- fractured lead Timeframe required: FREDA/ 1-2 weeks requested: per Dr. Rodríguez Device to be used: BSCI ?? Anticoagulated: no No CHADS score available Mechanical Mitral Valve: No Is patient Diabetic: No Should patient be considered for Biventricular device: no Date of most recent echo: none BiV/RV pacing: n/a AAI device Lead integrity concerns: Yes - RA lead fracture Lead and/or Device advisories: No Capped Hardware: ??No Jacki David RN [facility] Pacemaker/ICD Clinic [phone] Kam Rodríguez MD CARDIAC SERVICES OR D * SCAN-CARDIAC STRIP (02/05/2024 7:34 AM CDT) Scanner OTHER * SODIUM (02/05/2024 6:26 AM CDT) SODIUM 141 136 - 145 mmol/L 02/05/2024 7:31 AM CDT [facility] Blood BLOOD SPECIMEN / Unknown Venipuncture / Unknown 02/05/2024 6:26 AM CDT 02/05/2024 6:58 AM CDT Mark Sullivan MD CHEMISTRY Performing Organization Address City/[facility]/ZIP Co de Phone Number [facility] [address] [place] [address], [place] * POTASSIUM (02/05/2024 6:26 AM CDT) Pathologist [facility] POTASSIUM 4.7 3.5 - 5.1 mmol/L 02/05/2024 7:31 AM CDT [facility] Blood BLOOD SPECIMEN / Unknown Venipuncture / Unknown 02/05/2024 6:26 AM CDT 02/05/2024 6:58 AM CDT Mark Sullivan MD CHEMISTRY [facility] [address] [place] [address], [place] * CREATININE (02/05/2024 6:26 AM CDT) eGFR >90 >90 mL/min/1.7 3m2 02/05/2024 7:31 AM CDT [facility] Comment:As of 2021, eG FR is calculated by the CKD-EPI creatinine equation without race adjustment. ??eGFR can be influenced by muscle mass, exercise, and diet. ??The reported eGFR is an estimation only and is only applicable if the renal function is stable. CREATININE 0.82 0.50 - 0.90 mg/dL 02/05/2024 7:31 AM CDT [facility] Blood BLOOD SPECIMEN / Unknown Venipuncture / Unknown 02/05/2024 6:26 AM CDT 02/05/2024 6:58 AM CDT Mark Sullivan MD CHEMISTRY Performing Organization Address City/[facility]/ZIP Co de Phone Number [facility] [address] [place] [address], * MAGNESIUM (02/05/2024 6:26 AM CDT) Only the most recent of2 resultswithin the time period is included. MAGNESIUM 2.2 1.6 - 2.6 mg/dL 02/05/2024 7:31 AM CDT [facility] Blood BLOOD SPECIMEN / Unknown Venipuncture / Unknown 02/05/2024 6:26 AM CDT 02/05/2024 6:58 AM CDT Mark Sullivan MD CHEMISTRY Performing Organization Address [facility] Co de Phone Number [facility] [address] [place] [address], [place] * TSH (02/04/2024 7:30 PM CDT) TSH 1.07 0.27 - 4.20 uIU/mL 02/04/2024 8:11 PM CDT [facility] Blood BLOOD SPECIMEN / Unknown Venipuncture / Unknown 02/04/2024 7:30 PM CDT 02/04/2024 7:37 PM CDT Narrative [facility] - 02/04/2024 8:11 PM CDT In Adults, TSH values between 5.00 and 10.00 uIU/ml do not necessarily indicate the presence of Hypothyroidism. Correlation with clinical findings such as presence of goiter and/or Thyroperoxidase (TPO) Antibody may be helpful. For more information please refer to GUILLERMINA 2004; 291: 228-238. Chirag Camilo MD CHEMISTRY [facility] [address] [place] [address], * PACER LIN SINGLE CHAMBER W REPROG (02/04/2024 6:58 PM CDT) Narrative Kam Rodríguez MD - 02/04/2024 6:58 PM CDT Jacki David RN ? 02/04/2024 ??7:23 PM PACEMAKER EVALUATION REPORT February 04, 2024 Indication for Pacemaker: Sinus Node Dysfunction Primary MD: Devendra Mccann MD Implanting MD: Shlomo Irizarry MD DEVICE DATA - MV Oversensing Advisory 09/2017 [employer]: [id number] SR [id number] ??Implant Date 05/08/2016 LEAD DATA Atrial Lead: [employer]: 5076 - 45 cm [id number] Implant Date 05/08/2016 Visit location: ANW ED Reason For Evaluation: Sinus bradycardia 32 bpm MEASUREMENTS Atrial Sensing - P wave: 2.7 mV Atrial Capture: 0.5 V and 0.6 V @ 0.4 ms bipolar (tested lying on each side and sitting at side of bed) ??0.4 V and 0.5 V @ 0.4 ms unipolar Atrial Lead Impedance: >3000 ohms bipolar initially and then retested 524-534 ohms bipolar and 424-429 ohms unipolar DIAGNOSTIC DATA - Since 02/04/24 Atrial paced: 67% ??(since last clinic check: 04/02/24) ?? Atrial Episodes (>160 bpm): NOne ? Associated Symptoms: None reported. Appropriate intrinsic heart rate distribution for lifestyle Magnet rate: 100 bpm ??Estimated Battery Longevity: 2.5 years FINAL PARAMETERS Mode: AAI ??Lower rate: 60 bpm ?? Rate Response: OFF Atrial - Amplitude: 2 V ??Pulse width: 0.4 ms ??Sensitivity: Fixed 0.5 mV ??Refractory: 280 ms ??Polarity: unipolar (pace) bipolar (sense) Changes made: Programmed pt to unipolar pace and bipolar sense given what appears to be non capture on remote today with elevated impedances Conclusions: Normal pacemaker function. Pt thought to be non-capture on presenting remote earlier today. Pt pacemaker capturing appropriately in both unipolar and bipolar in ED- see changes above. ??Discussed results with ED provider and Dr. Rodríguez Follow up: Pending admit status. If pt is admitted will recheck tomorrow or one week remote to reassess if pt discharged from ED Routine is every 4 months via Latitude with annual [place] (or ANW if seeing Dr. Irizarry) each February/March. Jacki David, [facility] Pacemaker/ICD Clinic [phone] Kam Rodríguez MD CARDIAC SERVICES OR D * LAB TRACKING EVENT (02/04/2024 2:15 PM CDT) Other (Other) Client Collect / Unknown 02/04/2024 2:15 PM CDT 02/07/2024 4:08 PM CDT Zainab Velásquez NP LAB BILL ONLY [facility] [address] [place] [address], * PUTTY AND CAULKING SUPERVISOR THIN PREP PAP SCREEN IMAGED (02/04/2024 2:15 PM CDT) - Unsuccessful Attempt Case Report Gynecologic Cytology Report ? Case: [id number] ? Authorizing Provider: ??Zainab Velásquez NP ?? Collected: ? 02/04/2024 1415 ? Ordering Location: ? [facility] ?Received: ?02/08/2024 0951 ? First Screen: ?Laureen Ford ? Rescreen: ?Shantel Gonsalez ? Specimen: ?PUTTY AND CAULKING SUPERVISOR ThinPrep Vial Screening, Cervical ? 02/18/2024 8:03 AM CDT [employer]-C ENTRAL LABORATORY INTERPRETATION/ RESULT UNSATISFACTORY FOR EVALUATION (UNS) (none) 02/18/2024 8:03 AM CDT [facility] [employer] [facility]- ENTRAL LABORATORY IMEN ADEQUACY Specimen processed and examined, but unsatisfactory for evaluation of epithelial abnormality because of: Scant cellularity 02/18/2024 8:03 AM CDT [facility] LABORATORY HPV REQUEST HPV and PAP 02/18/2024 8:03 AM CDT [facility] Date of LMP 02/01/2024 02/18/2024 8:03 AM CDT [employer] LABORATORY-C ENTRAL LABORATORY Last Pap Date 04/29/2022 02/18/2024 8:03 AM CDT [facility] Last Pap Result NIL 8:03 AM CDT [facility] Abnormal Pap or [place] Bx in last 5 years Yes 02/18/2024 8:03 AM CDT [facility] LAB[facility] [place] Bx Done Today No 02/18/2024 8:03 AM CDT [facility] Additional Information 02/18/2024 8:03 AM CDT [facility] Comment: Interpreted at [facility] Laboratory - [address] [facility] [address], [place] [address] Automated Review Successful 02/18/2024 8:03 AM CDT [facility] Comment:Specimen processed s uccessfully by automated grove worker device, ThinPrep Imaging System, [employer] ANCILLARY TESTING PUTTY AND CAULKING SUPERVISOR HPV Ordered, Please see separate report 02/18/2024 8:03 AM CDT [facility] Note The pap test is a screening technique, not a diagnostic procedure. It is used primarily to screen for squamous cancers and precursor lesions. Published studies have shown that it is subject to both false negative and false positive results. The pap test should not be used as the sole means to diagnose or exclude pre-malignant and malignant lesions. 02/18/2024 8:03 AM CDT [facility] Other (Cervical) 02/04/2024 2:15 PM CDT 02/08/2024 9:51 AM CDT Zainab Velásquez NP PATHOLOGY/CYTOLOG Y [facility] [address] [place] [address], * HPV HIGH RISK (02/04/2024 2:15 PM CDT) TYPE 16 Negative Negative 02/09/2024 5:14 PM CDT [facility] TRAL LABORATORY TYPE 18 Negative Negative 02/09/2024 5:14 PM CDT [facility] TRAL LABORATORY OTHER HIGH RISK TYPES Negative Negative 02/09/2024 5:14 PM CDT [facility] TRA LABORATORY Other (Cervical) 02/04/2024 2:15 PM CDT 02/08/2024 9:51 AM CDT Narrative [facility] - 02/09/2024 5:14 PM CDT HPV types 16, 18, 31, 33, 35, 39, 45, 51, 52, 56, 58, 59, 66 and 68 DNA were undetectable or below the pre-set threshold. Methodology: Hannah Rafaela 4800 HPV Test Zainab Velásquez NP MICROBIOLOGY [facility] LABORATORY [address] [place] [address], [place] * ANTI HCV (10/07/2020 3:22 PM BARREL RACER) Pathologist [facility] HEPATITIS C ANTIBODY Non-React papa Non-React papa 10/07/2020 7:07 PM BARREL RACER [facility] TRAL LABORATORY Comment:Antibodies to HCV no t detected; does not exclude the possibility of exposure to HCV. Blood BLOOD SPECIMEN / Unknown Venipuncture / Unknown 10/07/2020 3:22 PM BARREL RACER 10/07/2020 3:22 PM BARREL RACER Soila REED SEND OUTS Performing Organization Address City/[facility]/ZIP Co de Phone Number [facility] [address] [place] [address], [place] * ANTI HIV 1/2 (10/07/2020 3:22 PM BARREL RACER) Pathologist [facility] HIV-1/HIV-2 ANTIBODY Non-Reacti ve Non-Reacti ve 10/07/2020 7:09 PM BARREL RACER [facility] TRAL LABORATORY Comment:HIV-1 p24 and HIV-1/ HIV-2 Ab not detected. Blood BLOOD SPECIMEN / Unknown Venipuncture / Unknown 10/07/2020 3:22 PM BARREL RACER 10/07/2020 3:22 PM BARREL RACER Soila REED SEND OUTS [facility] [address] [place] [address], [place] from Last 3 Months or Most Recently Relevant to Health Maintenance Advance Directives * Full Code (Latest Code Status on File) Date Activated Date Inactivated Comments 02/15/2024 12:03 PM 02/16/2024 4:08 PM Question Answer Comments Code Status Discussion: Reviewed Preferences * Full Code Date Activated Date Inactivated Comments 02/04/2024 10:32 PM 02/05/2024 4:16 PM Question Answer Comments Code Status Discussion: Reviewed Preferences * Full Code Date Activated Date Inactivated Comments 12/25/2021 8:47 AM 12/25/2021 4:33 PM Question Answer Comments Code Status Discussion: Not Discussed * Full Code Date Activated Date Inactivated Comments 06/05/2020 6:12 AM 06/05/2020 1:57 PM Question Answer Comments Code Status Discussion: Not Discussed * Full Code Date Activated Date Inactivated Comments 06/05/2020 6:12 AM 06/05/2020 6:12 AM Question Answer Comments Code Status Discussion: Not Discussed Care Teams Mental Health Advanced Practice Nurse Relationship Specialty Start Date End Date Devendra Mccann MD [address] [facility] [place] [address] PCP - General Family Practice 03/06/20
--- OUTSIDE RECORDS SUMMARY | 2024-02-24 07:19 | XMS_ITS | Encounter Summary ---
Author Name Unknown Organization [place] Address [address] [place] [address] Care Team Providers Care Charge Entry Specialist Name Role Phone Joy Mallory MD Unavailable [phone] Maury Mccann Primary Care Provider [phone] Kade Edmonds MD Unavailable [phone] Reason for Visit * Reason Onset Date Comments Eye Problem 12/11/2022 Encounter Details Date Type Department Care Team (Late st Contact Info) Description 12/11/2022 [facility] [place] [facility] [address] 9[facility] [address] [place] [address] Cristian Matthews, RN Eye Problem Social History [...] Coronavirus/COVID-19? No / Unsure 12/02/2022 9:17 AM LEGISLATIVE ASSISTANT documented as of this encounter Plan of Treatment Not on file documented as of this encounter Visit Diagnoses Not on filedocumented in this encounter Care Teams Charge Entry Specialist Relationship Specialty Start Date End Date Kendra Mccannmargarito Hernandez [address] [place] [address] PCP - General Family Medicine 10/22/20 Joy Mallory MD Ophthalmology 01/31/18 Kade Edmonds MD [address] [place] [address] Assigned Surgical Provider 11/21/22 [facility] [address] [place] [address], [address] [place], [place] [id number] Referring Physician Ophthalmology 09/10/16 documented as of this encounter
--- OUTSIDE RECORDS SUMMARY | 2024-02-24 07:19 | XMS_ITS | Encounter Summary ---
Author Name Unknown Organization [place] Address [facility] [place] [address] Care Team Providers Care Customer Care Agent Name Role Phone Joy Mallory MD Unavailable [phone] Maury Mccann Primary Care Provider [phone] Kade Edmonds MD Unavailable [phone] Encounter Details Date Type Department Care Team (Late st Contact Info) Description 12/01/2022 [facility] [place] [facility] Preoperative Assessment Center [address] 5th [place] [address] Jazz Lloyd, RN Social History [...] Coronavirus/COVID-19? No / Unsure 12/02/2022 9:17 AM FACTORY MAINTENANCE MANAGER documented as of this encounter Plan of Treatment Not on file documented as of this encounter Visit Diagnoses Not on filedocumented in this encounter Care Teams Customer Care Agent Relationship Specialty Start Date End Date Maury Mccann [address] [place] [address] PCP - General Family Medicine 10/22/20 Joy Mallory MD Ophthalmology 01/31/18 Kade Edmonds MD [address] [place] [address] Assigned Surgical Provider 11/21/22 Mark Crabtree [facility] [address] [place] [address], [address] [place] [address] Referring Physician Ophthalmology 09/10/16 documented as of this encounter
--- OUTSIDE RECORDS SUMMARY | 2024-02-24 07:19 | XMS_ITS | Clinical Summary ---
Author Name Unknown Organization [place] Address [address] [place] [address] Care Team Providers Care Nonprofit Director Name Role Phone Joy Mallory MD Unavailable [phone] Maury Mccann Primary Care Provider [phone] Kade Edmonds MD Unavailable [phone] Allergies Active Allergy Reactions Criticality Noted [...] into the lungs as needed 03/19/2022 Active bmqnpjns-jatbbmmea-fa xamethasone (MAXITROL) 0.1 % ophthalmic suspensionIndications :Ptosis [...] Comments Blood Pressure 113/64 12/02/2022 12:00 PM COUNTER FORMER Pulse 60 12/02/2022 12:00 PM COUNTER FORMER Temperature 36.8 ??C (98.3 ??F) 12/02/2022 1 2:15 PM COUNTER FORMER Respiratory Rate 16 12/02/2022 11:2 0 AM COUNTER FORMER Oxygen Saturation 92% 12/02/2022 12: 00 PM COUNTER FORMER Inhaled Oxygen Concentration - - Weight 100.2 kg (220 lb 14.4 oz) 12/02/2022 9:46 AM COUNTER FORMER Height 175.3 cm (5' 9.02) 12/02/2022 9:46 AM CS T Body Mass Index 32.61 12/02/2022 9:46 AM COUNTER FORMER Plan of Treatment Health Maintenance Due Date [...] 09/22/2005, 04/05/1997, Additional history exists COVID-19 Vaccine ( - season) 2023 PHQ-2 (once per calendar year) 2023 12/01/2022, 11/16/2022 INFLUENZA VACCINE (Season Ended) 2024 06/22/2012, 06/22/2012 HPV IMMUNIZATION Aged Out No longer e [...] this topic Medical Devices Implanted Type Area Audit Tech Device Identifier Shelf Expiration Date Model / Serial / Lot Bioinductive Implant With Arthroscopic Delivery System (1) Medium Implanted:Qty: 1 on 10/22/2020 by Carmine Mcgrath MD at [facility] Left: Shoulder [employer] 05/18/2022 [id number] / / [id number] Tendon Anchors (8) Implanted:Qty: 1 on 10/22/2020 by Carmine Mcgrath MD at [facility] Left: Shoulder [employer] [id number] 08/08/2022 2504-1 / / [id number] Bone Anchors (3) Implanted:Qty: 1 on 10/22/2020 by Carmine Mcgrath MD at [facility] Left: Shoulder [employer] [id number] 05/10/2023 [id number] / / [id number] Care Teams Nonprofit Director Relationship Specialty Start Date End Date Ramy Maury P [address] [place] [address] [place] [address] PCP - General Family Medicine 10/22/20 Joy Mallory MD Ophthalmology 01/31/18 Kade Edmonds MD [address] [place] [address]165 Assigned Surgical Provider 11/21/22 Mark Crabtree [facility] [address] [place] [address], [address] [place] [address] Referring Physician Ophthalmology 09/10/16
--- OUTSIDE RECORDS SUMMARY | 2024-02-24 07:19 | XMS_ITS | Encounter Summary ---
Author Name Unknown Organization [place] Address [facility] [place] [address] Care Team Providers Care Punch Press Operator Name Role Phone Thom Jones MD Primary Care Provider [phone] Joy Mallory MD Unavailable [phone] Maury Mccann Primary Care Provider [phone] Kade Edmonds MD Unavailable [phone] Encounter Details Date Type Department Care Team (Late st Contact Info) Description 09/27/2020 Orders Only [facility] OR [address] [place] [address] Carmine Mcgrath MD [facility] [address] [place] [address] [place] [address] Encounter for screening for other viral diseases [...] Virus (Coronavirus) by PCR (10/18/2020 2:47 PM BRASSIERE CUP MOLD CUTTER) COVID-19 Virus PCR to [facility] - Source Nasopharyngeal 10/18/2020 2:47 PM BRASSIERE CUP MOLD CUTTER [facility] COVID-19 Virus PCR to [facility] - Result Test received-See reflex to IDDL test SARS CoV2 (COVID-19) Virus RT-PCR 10/18/2020 6:37 PM BRASSIERE CUP MOLD CUTTER [facility], [facility] Specimen from nasopharyngeal structure (specimen) 10/18/2020 2:47 PM BRASSIERE CUP MOLD CUTTER 10/18/2020 2:48 PM BRASSIERE CUP MOLD CUTTER Carmine Mcgrath MD LAB - MICRO GENERAL ORDERABLES INFECTIOUS DISEASES [facility], [facility] [address] [place] [address], [facility] [address] [place], [place] [address] [phone] documented in this encounter Visit Diagnoses Diagnosis Encounter for screening for other viral diseases documented in this encounter Care Teams Punch Press Operator Relationship Specialty Start Date End Date Thom Jones MD PCP - General Family Practice 09/10/16 10/21/20 Maury Mccann [address] [place] [address] PCP - General Family Medicine 10/22/20 Joy Mallory MD Ophthalmology 01/31/18 Kade Edmonds MD [address] [place] [address] Assigned Surgical Provider 11/21/22 [facility] [address] [place] [address], [address] [place] [address] Referring Physician Ophthalmology 09/10/16 documented as of this encounter
--- OUTSIDE RECORDS SUMMARY | 2024-02-24 07:19 | XMS_ITS | Encounter Summary ---
Author Name Unknown Organization [place] Address [facility] [place] [address] Care Team Providers Care Relay Engineer Name Role Phone Joy Mallory MD Unavailable [phone] Maury Mccann Primary Care Provider [phone] Kade Edmonds MD Unavailable [phone] Encounter Details Date Type Department Care Team (Late st Contact Info) Description 12/01/2022 [facility] Preoperative Assessment Center [address] 5th [place] [address] Cathy Rajput, AUROAR Social History Tobacco Use Types Packs/Day Years [...] Coronavirus/COVID-19? No / Unsure 12/02/2022 9:17 AM COVER SEAMER documented as of this encounter Plan of Treatment Not on file documented as of this encounter Visit Diagnoses Not on filedocumented in this encounter Care Teams Relay Engineer Relationship Specialty Start Date End Date Maury Mccann [address] [place] [address] PCP - General Family Medicine 10/22/20 Joy Mallory MD Ophthalmology 01/31/18 Kade Edmonds MD [address] [place] [address] 000845 Assigned Surgical Provider 11/21/22 Mark Crabtree [facility] [address] [place] [address], [address] [place] [address] Referring Physician Ophthalmology 09/10/16 documented as of this encounter
--- OUTSIDE RECORDS SUMMARY | 2024-02-24 07:19 | XMS_ITS | Encounter Summary ---
Author Name Unknown Organization [place] Address [address] [place] [address] Care Team Providers Care Inspector Mechanical Name Role Phone Thom Jones MD Primary Care Provider Joy Mallory MD Unavailable [phone] Maury Mccann Primary Care Provider [phone] Kade Edmonds MD Unavailable [phone] Encounter Details Date Type Department Care Team (Late st Contact Info) Description 03/01/2018 Telephone [facility] [place] 8[address] [facility] 9[facility] Clin [address] [place] [phone] Kade Edmonds MD [address] [place], [place] [address] Social History Tobacco Use Types Packs/Day Years [...] on filedocumented in this encounter Care Teams Inspector Mechanical Relationship Specialty Start Date End Date Thom Jones MD PCP - General Family Practice 09/10/16 10/21/20 Maury Mccann [address] [place] [address] [place] [address] PCP - General Family Medicine 10/22/20 Joy Mallory MD Ophthalmology 01/31/18 Kade Edmonds MD [address] [place] [address] Assigned Surgical Provider 11/21/22 [facility] [address] [place] [address], [address] [place] [address] Referring Physician Ophthalmology 09/10/16 documented as of this encounter
--- OUTSIDE RECORDS SUMMARY | 2024-02-24 07:19 | XMS_ITS | Referral Summary ---
Author Name Unknown Organization [place] Address [address] [place] [address] Care Team Providers Care Dip Lube Operator Name Role Phone Joy Mallory MD Unavailable [phone] Maury Mccann Primary Care Provider [phone] Kade Edmonds MD Unavailable [phone] Allergies Active Allergy Reactions Criticality Noted [...] into the lungs as needed 03/19/2022 Active gmxjidwc-ulrgguovv-iy xamethasone (MAXITROL) 0.1 % ophthalmic suspensionIndications :Ptosis [...] Comments Blood Pressure 113/64 12/02/2022 12:00 PM GENERAL MERCHANDISE MANAGER Pulse 60 12/02/2022 12:00 PM GENERAL MERCHANDISE MANAGER Temperature 36.8 ??C (98.3 ??F) 12/02/2022 1 2:15 PM GENERAL MERCHANDISE MANAGER Respiratory Rate 16 12/02/2022 11:2 0 AM GENERAL MERCHANDISE MANAGER Oxygen Saturation 92% 12/02/2022 12: 00 PM GENERAL MERCHANDISE MANAGER Inhaled Oxygen Concentration - - Weight 100.2 kg (220 lb 14.4 oz) 12/02/2022 9:46 AM GENERAL MERCHANDISE MANAGER Height 175.3 cm (5' 9.02) 12/02/2022 9:46 AM CS T Body Mass Index 32.61 12/02/2022 9:46 AM GENERAL MERCHANDISE MANAGER Plan of Treatment Not on file Medical Devices Implanted Type Area Manager Medicaid Device Identifier Shelf Expiration Date Model / Serial / Lot Bioinductive Implant With Arthroscopic Delivery System (1) Medium Implanted:Qty: 1 on 10/22/2020 by Carmine Mcgrath MD at [facility] Left: Shoulder [employer] 05/18/2022 [id number] / / [id number] Tendon Anchors (8) Implanted:Qty: 1 on 10/22/2020 by Carmine Mcgrath MD at [facility] Left: Shoulder [employer] [id number] 08/08/2022 2504-1 / / [id number] Bone Anchors (3) Implanted:Qty: 1 on 10/22/2020 by Carmine Mcgrath MD at [facility] Left: Shoulder [employer] [id number] 05/10/2023 [id number] / / [id number] Care Teams Dip Lube Operator Relationship Specialty Start Date End Date Maury Mccann [address] [place] [address] PCP - General Family Medicine 10/22/20 Joy Mallory MD Ophthalmology 01/31/18 Kade Edmonds MD [address] [place] [address] [id number] Assigned Surgical Provider 11/21/22 Mark Crabtree [facility] [address] [place] [address], [address] [place] [address] Referring Physician Ophthalmology 09/10/16
== END 2024-02-24 07:17 | disposition home or self-care (01) ==
LOC: US 07:16
PROVIDERS: PCP Family Medicine; Visit Provider Registered Nurse
DX: N92.0 Excessive and frequent menstruation with regular cycle (principal); R93.89 Abnormal findings on diagnostic imaging of other specified body structures
CPT/HCPCS: 76830; 76856

== ENCOUNTER 2024-06-27 17:43 | Emergency (ER) | payer BC, SELFPAY ==
[2024-06-27] VITALS (10 sets, daily range): BP systolic 148–172; BP diastolic 81–83; PULSE 60; RESP 18; TEMP 36.5; O2SAT 95–100; BMI 34.0
--- NOTE | 2024-06-27 18:21 | ED.GENADULT ---
HPI - General Adult General Chief complaint: Unspecified Complaint, Adult Stated complaint: Pacemaker revision Fri-zinging, fatigue Time Seen by Provider: 06/27/24 18:01 History of Present Illness HPI narrative: Patient reports pacemaker pocket revision on Wednesday in AM at [employer]. Went back to work same day but was experiencing pain. Concern is mostly fatigue that has worsened rather than improved. Also reports feeling hot and clammy . 44-year-old woman presenting to the emergency department with concern primarily fatigue. Has been feeling increasingly flushed/hot over the course the afternoon as well. 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 Prior to that had had a couple of ablations. The pacer apparently had migrated laterally. The discomfort she felt has improved. Wound was bleeding in the shower the other day. Maybe slightly open she thought. She replaced Band-Aid. Does not appear to be continually bleeding. Has not had a measured fever. No cough or cold symptoms. She notes her heart rate at 59 and says that that is not normal. Last time it was like that was related to frayed wires she says. There is not a defibrillator component to her pacer. She has not queried her pacer. Has been many hours attempting to contact somebody related to these matters recently. Did leave a message with the pacer clinic and is anticipating a call back within 24 hours. Related Data Home Medications ?Medication ?Instructions ?Recorded ?Confirmed albuterol sulfate 90 mcg/actuation 2 puff inhalation Q6-8H PRN 09/10/22 03/20/24 aerosol inhaler (Ventolin HFA) shortness of breath or wheezing Previous Rx's ?Medication ?Instructions ?Recorded sertraline 100 mg tablet 150 mg (1.5 x 100 mg) PO QDAY #135 12/06/23 tabs Allergies Allergy/AdvReac Type Severity Reaction Status Date / Time chromium Allergy Intermediate Rash Verified 03/20/24 08:38 zolpidem Allergy Intermediate Nightmares Verified 03/20/24 08:38 animal dander Allergy Mild Runny Verified 03/20/24 08:38 nose, itching ragweed pollen Allergy Mild Runny nose Verified 03/20/24 08:38 Pollen Allergy Mild Itching Uncoded 03/20/24 08:38 Review of Systems Status of ROS: Reports: 6 or more systems reviewed and unremarkable except as noted in History and below PFSH PFS Medical History SHYANNE (generalized anxiety disorder) ?F41.1 - Generalized anxiety disorder (ICD-10) Presence of cardiac pacemaker ?Z95.0 - Presence of cardiac pacemaker (ICD-10) Obsessive-compulsive disorder ?F42.9 - Obsessive-compulsive disorder, unspecified (ICD-10) Mild intermittent asthma in adult without complication ?J45.20 - Mild intermittent asthma, uncomplicated (ICD-10) Allergic rhinitis ?J30.9 - Allergic rhinitis, unspecified (ICD-10) Surgical History History of varicose vein ligation and stripping (06/05/20) ?Z98.890 - Other specified postprocedural states (ICD-10) History of salpingectomy (11/19/14) ?Z90.79 - Acquired absence of other genital organ(s) (ICD-10) History of repair of left rotator cuff (10/22/20) ?Z98.890 - Other specified postprocedural states (ICD-10) History of radiofrequency ablation (RFA) procedure for cardiac arrhythmia (2012) ?Z98.890 - Other specified postprocedural states (ICD-10) History of permanent cardiac pacemaker placement (05/08/16) ?Z95.0 - Presence of cardiac pacemaker (ICD-10) History of hemorrhoidectomy (12/23/17) ?Z98.890 - Other specified postprocedural states (ICD-10) History of blepharoplasty (04/2017) ?Z98.890 - Other specified postprocedural states (ICD-10) Family History Maternal Grandmother Stroke Mother Diabetes Mental disorder Father Myocardial infarction, Onset Age: 50 Prostate cancer Daughter Bleeding disorder Other Rheumatoid arthritis Social History Narrative: Does not drink alcohol Does not exercise Non-smoker Sig other, [employer], 2 kids What is your current living situation?: I presently have a place to live Problems where you live: no known problems In the past 12 months, utilities in danger of being shut off: no In past 12 months, lack of transportation kept you from medical appts, meetings, work, or getting things needed for daily living: no In the past 12 mos, have been you worried that your food would run out before you had money to buy more?: never true In the past 12 mos, the food you bought just didn't last and you didn't have money to buy more?: never true Smoking Status: Never smoker Do you use any of these nicotine containing products: None Non-prescribed substance use: denies use How often does anyone, including family, friends and others, physically hurt you: never How often does anyone, including family, friends and others, insult or talk down to you: never How often does anyone, including family, friends and others, threaten you with harm: never How often does anyone, including family, friends and others, scream or curse at you: never Little interest or pleasure in doing things: several days Feeling down, depressed, or hopeless: several days Exam Narrative: Exam Narrative: Pleasant. NAD. Does appear fatigued. Skin is warm and dry. Removing the Band-Aid at the left upper chest shows clean incision. There is light fresh blood in the area. Centrally at about a cm and half there is irregular elevation of the tissue. Did not explore to see if this was open at this point. No surrounding inflammatory changes. Generally skin seems a little flushed more noticeable in her face. Lungs appear to be clear. Heart with slow but regular rhythm. Abdomen is soft and nontender. Extremities are well perfused without edema. Const: Vital Signs, click to edit/add: Vital Signs - 24 hr 06/27/24 17:47 06/27/24 19:31 06/27/24 19:33 Temperature 97.7 F Pulse Rate 60 Pulse Rate [Pulse Oximeter] 60 Respiratory Rate 18 Blood Pressure 148/83 H Blood Pressure [Ri ght Upper Arm] 172/81 H Pulse Oximetry 95 100 99 Oxygen Delivery Me thod Room Air 06/27/24 19:34 06/27/24 19:45 06/27/24 20:00 Temperature Pulse Rate 60 60 60 Pulse Rate [Pulse Oximeter] Respiratory Rate Blood Pressure Blood Pressure [Ri ght Upper Arm] Pulse Oximetry 98 98 98 Oxygen Delivery Me thod 06/27/24 20:02 06/27/24 20:15 06/27/24 20:30 Temperature Pulse Rate 60 60 60 Pulse Rate [Pulse Oximeter] Respiratory Rate Blood Pressure 159/81 H Blood Pressure [Ri ght Upper Arm] Pulse Oximetry 98 99 98 Oxygen Delivery Me thod 06/27/24 20:45 Temperature Pulse Rate 60 Pulse Rate [Pulse Oximeter] Respiratory Rate Blood Pressure Blood Pressure [Ri ght Upper Arm] Pulse Oximetry 98 Oxygen Delivery Me thod Documenting provider has reviewed patient's vital signs: yes Course Vital Signs Vital signs: Initial Vital Signs Temperature 97.7 F 06/27/24 17:47 Temperature Source Temporal Artery Scan 06/27/24 17:47 Pulse Rate 60 06/27/24 17:47 Respiratory Rate 18 06/27/24 17:47 Blood Pressure 172/81 H 06/27/24 17:47 Blood Pressure Mean 111 H 06/27/24 17:47 Pulse Oximetry 95 06/27/24 17:47 Oxygen Delivery Method Room Air 06/27/24 17:47 Vital Signs Temperature 97.7 F 06/27/24 17:47 Pulse Rate 60 06/27/24 17:47 Respiratory Rate 18 06/27/24 17:47 Blood Pressure 172/81 H 06/27/24 17:47 Pulse Oximetry 95 06/27/24 17:47 Oxygen Delivery Method Room Air 06/27/24 17:47 Temperature 97.7 F 06/27/24 17:47 Pulse Rate 60 06/27/24 20:45 Respiratory Rate 18 06/27/24 17:47 Blood Pressure 159/81 H 06/27/24 20:02 Pulse Oximetry 98 06/27/24 20:45 Oxygen Delivery Method Room Air 06/27/24 17:47 Medications Administered Medications: Discontinued Medications Generic Name Dose Route Start Last Admin Trade Name Freq PRN Reason Stop Dose Admin Sodium Chloride 1,000 mls @ 1,000 mls/hr 06/27/24 18:41 06/27/24 19:12 0.9 % Sodium Chloride 1000 Ml IV 06/27/24 19:40 1,000 mls/hr .Q1H ONE Administration Medical Decision Making MDM Narrative Medical decision making narrative: Does not appear to be infected at least hourly. Should not regardless affect pacing. Will look for other evidence of infection or something that might be contributing to her feeling unwell. Continue to monitor on residential monitor. EKG. Given normal saline IV. Monitor on residential monitor without event. Continued in same rhythm at 60. Slept. Appears less flushed feeling better. Labs are reassuring. Medical Records Medical records reviewed: Yes I reviewed the patient's medical records Lab Data Lab results reviewed: Yes I reviewed the patient's lab results Labs: Lab Results 06/27/24 Range/Units 19:05 WBC 8.09 (4.50-11.00) K/uL RBC 4.45 (4.00-5.20) m/uL Hgb 13.2 (12.0-16.0) gm/dL Hct 40.2 (33.0-51.0) % MCV 90 (80-100) fL MCH 30 (26-34) pg MCHC 33 (32-36) gm/dL RDW Coeff of Flores 12.6 (11.5-15.5) % Plt Count 324 (140-440) K/uL Neut % (Auto) 59.6 (42.0-72.0) % Lymph % (Auto) 26.7 (20-44) % Chaves % (Auto) 7.0 (0.0-11.0) % Eos % (Auto) 6.1 (0.0-7.0) % Baso % (Auto) 0.6 (0.0-3.0) % Neut # (Auto) 4.82 (1.7-7.0) K/uL Lymph # (Auto) 2.16 (0.90-2.90) K/uL Chaves # (Auto) 0.60 (0.00-0.90) K/UL Eos # (Auto) 0.49 (0.00-0.50) K/uL Baso # (Auto) 0.05 (0.00-0.30) K/uL Abs Immat Gran (auto) 0.00 (0.00-0.30) K/uL Imm/Tot Granulo (auto) 0.0 % Sodium 137 (135-149) mmol/L Potassium 4.4 (3.6-5.1) mmol/L Chloride 105 (96-114) mmol/L Carbon Dioxide 25 (20-32) mmol/L Anion Gap 7 (7-15) mEq/L BUN 7 (5-24) mg/dL Creatinine 0.7 (0.5-1.5) mg/dL Estimated Creat Clear 107.18 Estimated GFR 109 ml/min Glucose 86 (60-115) mg/dL Calcium 8.6 (8.4-10.6) mg/dL Magnesium 2.0 (1.5-2.6) mg/dL Troponin I < 0.01 L (0.01-0.04) ng/mL C-Reactive Protein 1.7 H (0.5-1.0) mg/dL NT-Pro-B Natriuret Pep 386 pg/mL ECG Data Attestation: I personally reviewed and interpreted this ECG as follows: (Atrial paced rhythm. Rate of 60) Discharge Plan Discharge Clinical Impression: Malaise, Paced cardiac rhythm, Fatigue Patient Disposition: Home, Self-Care Condition: Improved Additional Instructions: I suppose it is good to focus on hydration. I hope you receive a call back about your pacer soon. Returns/be seen for worsening lightheadedness, chest pain, increasing shortness of breath, increasing pain/swelling/redness about your surgical site particularly associated with fever. You appear to have demonstrated stability in your heart rhythm here today. There may be some other as yet unidentified infection. There is mild elevation in your inflammatory marker CRP. White count is normal. Prescriptions: No Action albuterol sulfate [Ventolin HFA] 90 mcg/actuation HFA aerosol inhaler 2 puff inhalation Q6-8H PRN (Reason: shortness of breath or wheezing) Patient Comments: INHALE TWO PUFFS BY MOUTH EVERY 4 HOURS WHILE AWAKE sertraline 100 mg tablet 150 mg PO QDAY Qty: 135 1RF Follow Up/Referrals: Thom Jones MD [Primary Care Provider] - Stand Alone Forms: [employer] Info Instructions
--- NOTE | 2024-06-27 18:38 | CRLHL7_ITS ---
For Patients: As a result of the Cures Act, medical imaging exams and procedure reports are released immediately into your electronic medical record. You may view this report before your referring provider. If you have questions, please contact your health care provider. INDICATION: Recent changes to pacemaker TECHNIQUE: Chest radiograph 1 view COMPARISON: None FINDINGS: The sensitivity and specificity of the exam are moderately limited by the patient`s body habitus. Mediastinum: The mediastinum is normal in appearance. The heart silhouette is normal in size and morphology. A left cardiac pacer is present with lead in the right atrium. Lung: Both lungs are unremarkable in appearance. No sign of pleural effusion seen. No pneumothorax is identified. Bone and Soft tissue: Unremarkable for age. IMPRESSION: 1. No acute cardiopulmonary disease is seen. Dictated by: Dionicio Garza MD @ 06/27/2024 19:26:59 (Electronically Signed)
--- OUTSIDE RECORDS SUMMARY | 2024-06-27 18:49 | XMS_ITS | Encounter Summary ---
Author Organization [facility] Address [address] [place] [address]. [place] [address] Care Team Providers Care [employer] Name Role Phone Joy Mallory MD Unavailable [phone] Maury Mccann Primary Care Provider [phone] Kade Edmonds MD Unavailable [phone] Reason for Visit * Reason Onset Date Comments Eye Problem 12/11/2022 Encounter Details Date Type Department Care Team (Late st Contact Info) Description 12/11/2022 [facility] [place] [facility] Eye [address] [facility] [address] [place] [id number] Cristian Matthews, RN Eye Problem Social History [...] Coronavirus/COVID-19? No / Unsure 12/02/2022 9:17 AM [facility] MACHINE OPERATOR documented as of this encounter Plan of Treatment Not on file documented as of this encounter Visit Diagnoses Not on filedocumented in this encounter Care Teams [employer] Relationship Specialty Start Date End Date Maury Mccann [address] [facility] [place] [address] PCP - General Family Medicine 10/22/20 Joy Mallory MD Ophthalmology 01/31/18 Kade Edmonds MD [address] [place] [id number] Assigned Surgical Provider 11/21/22 [facility] [address] [place] [address], [address] [place], [place] [id number] Referring Physician Ophthalmology 09/10/16 documented as of this encounter
--- OUTSIDE RECORDS SUMMARY | 2024-06-27 18:49 | XMS_ITS | Clinical Summary ---
Author Organization [email or web address] [facility] Address [place], [place] [address] Care Team Providers Care Buzzsaw Operator Name Role Phone Devendra Mccann MD Primary [...] mg tablet Take 150 mg by mouth once daily. 04/30/2022 Active clotrimazole-bet amethasone 1%-0.05% creamIndications :Rash Apply topically to affected area(s) two times daily. 45 g 06/11/2024 Active oxyCODONE-acetam inophen (PERCOCET) 5-325 mg per tabletIndication s:Pacemaker Take 1-2 Tablets by mouth every 6 hours if needed for Pain. Max acetaminophen dose: 4000mg in 24 hrs. 15 Tablet 06/23/2024 Active aspirin chewable 81 mg chewable tabletIndication s:Malfunction of cardiac pacemaker, initial encounter Chew 1 Tablet (81 mg) by mouth once daily. 30 Tablet 02/16/2024 4 Discontinue d(*Patient states no longer taking) oxyCODONE-acetam inophen (PERCOCET) 5-325 mg per tabletIndication s:S/P cardiac pacemaker procedure Take 1-2 Tablets by mouth every 6 hours if needed for Pain. Max acetaminophen dose: 4000mg in 24 hrs. 10 Tablet 02/17/2024 4 Discontinue d(*Patient states no longer taking) Active Problems Problem Noted Date Diagnosed Date [...] compulsive disorder) 11/12/2012 Hx of SVT 01/18/2008 Overview (12/19/2008): -02/09/08 S/P ablation Unspecified asthma(493.90) 12/13/2006 ALLERGIC RHINITIS 12/13/2006 Grade IV hemorrhoids Resolved Problems Problem Noted Date Diagnosed Date Resolved Date Vaginal itching 04/19/2017 08/07/2019 Vaginal discharge 04/19/2017 08/07/2019 Supervision of other normal 01/09/2014 07/09/2014 Overview (06/12/2014): Planned and happy. FOB - History SVT - s/p ablation Supervision of other normal 06/15/2012 11/12/2012 Overview (09/06/2012): Marginal placenta. Repeat US at 32 weeks. Resolved. Flu 06/22/12 TDaP 08/15/12 First trimester bleeding 04/19/201211/2012 Unspecified asthma(493.90) 01/18/2008 0 11/15/2008 Grade III hemorrhoids 2017 Encounters Date Type Department Care Team Description 06/27/2024 Nurse Triage [address] [phone] Devendra Mccann MD Fatigue 06/27/2024 [place]phone [facility] [place] [address] [address] Jeanie Beltran MD Fatigue (Post procedure ) 06/23/2024 8:20 AM CDT Anesthesia Event [facility] [address] [place] [address] Thom Adamson MD Bakke, Amber N, ERNESTINE 06/23/2024 6:43 AM CDT - 06/23/2024 12:30 PM CDT Hospital Encounter [facility] [address] [place] [address] Jeanie Beltran MD Pacemaker (Primary Dx) Discharge Disposition: Home Self Care 06/23/2024 Travel 06/11/2024 12:15 PM CDT Office Visit [facility] [address] [place] [phone] Jeanine Toro NP Rash (Right front of leg ) 06/11/2024 Travel 06/02/[address] [facility] [address] [address] Eri Kelly RN Follow Up 05/25/2024 Telephone [facility] [place] [address] [address] Janiya Mckee RN 05/25/2024 Travel 05/17/2024 Telephone [facility] [address] [facility] [address] [place] [address] Janiya Mckee RN Follow Up 05/15/2024 Telephone [facility] [address] [place] [address] Shlomo Irizarry MD Post Procedure 04/24/2024 Telephone [facility] [address] [facility] [address] [place] [address] Shlomo Irizarry MD Appointment from Last 3 Months Immunizations Name Administration [...] Sex Assigned at Female 11/24/2021 7:04 PM RESTAURANT TEAM MEMBER Gender Identity Female 11/24/2021 7:04 PM RESTAURANT TEAM MEMBER Sexual Orientation Straight 11/24/2021 7: 04 PM RESTAURANT TEAM MEMBER Obstetrics History Para Term AB IAB SAB Ectopic Multiple Livin g Live Births 5 2 2 0 3 0 2 1 0 2 2 Date Outcome GA Total Labor Labor/2nd/3rd Weight Sex Type Anes PTL Jacki A1 A5 Name Clin 2005 Term 40w 0d 3.8 kg (8 lb 6 oz) F Vag Epidur al Livin g 8 9 [place] Delivery Location:[facility] 2011 Term 39w 2d 3.54 kg (7 lb 13 oz) F Vag Livin g 8 9 Aynsl [place] Delivery Location:[facility] 2013 SAB 8w0 d SPONTA NEOUS 2013 SAB 12w 0d SPONTA NEOUS 2014 Ectopic 5w0 d ECTOPI C Sánchez Delivery Location:[facility] Comments:ruptured righ t ectopic Last Filed Vital Signs Vital Sign Reading Time Taken Comments Blood Pressure 158/94 06/23/2024 11:31 AM CDT Pulse 60 06/23/2024 11:31 AM CDT Temperature 36.8 ??C (98.2 ??F) 06/23/2024 7:21 AM CD T Respiratory Rate 12 06/23/2024 11:31 AM CDT Oxygen Saturation 97% 06/23/2024 11:31 AM CDT Inhaled Oxygen Concentration - - Weight 108 kg (238 lb) 06/23/2024 7:21 AM CDT Height 172.7 cm (5' 8) 06/23/2024 7:21 AM CDT Body Mass Index 36.19 06/23/2024 7:21 AM CDT Plan of Treatment Upcoming Encounters Date Type Department Care Team (Late st Contact Info) Description 07/20/2024 10:30 AM CDT Office Visit [facility] [address] [place] [address] Kam Rodríguez MD [address] [facility] [address] [place] [address] Health Maintenance Due Date Last Done Comments Tetanus booster 08/15/2022 08/15/2012, 09/10, 04/05/1997 COVID-19 vaccine series ( season) 2024 Influenza for age 9-49 06/11/2024 06/22/2012 BMI (ht and wt on same day) for age 18+ 02/21/2025 02/22/2024, 10/14/2020, 06/14/2020, Additional history exists Depression screening for age 12+ 02/23/2025 02/24/2024, 02/22/2024, 10/14/2020, Additional history exists Pap test for age 21-65 02/21/2029 , 02/04/2024, 04/29/2022, Additional history exists Tdap Completed 08/15/2012 HIV for age 15-65 Completed 10/07/2020, 03/25/2012 Hepatitis C screening for age 18-79 Completed 10/07/2020 Pneumococcal series for age 6-64 Aged Out No longer eligible based on patient's age to complete this topic Medical Devices Implanted Type Area Silk Presser Device Identifier Shelf Expiration Date Model / Serial / Lot Single Chamber Mri Conditional Pacemaker Implanted:05/08 by Shlomo Irizarry MD (Quantity not on file) Standard Pacemaker Ages [employer] ESSENTIO MRI SR [id number] / [id number] / Procedures Procedure Name Priority Date/Time Associated Diagnosis Comments EP PPM Routine 06/23/2024 8:46 AM CDT BASIC METABOLIC PANEL Preop 06/23/2024 7:18 AM CDT CBC W PLT NO DIFF Preop 06/23/2024 7:1 8 AM CDT EKG 12 LEAD Preop 06/23/2024 7:09 AM CDT URINE Preop 06/23/2024 6:47 AM CDT STREP A PCR STAT 06/11/2024 12:22 PM CDT Rash THROAT RAPID STREP A WITH REFLEX STAT 06/11/2024 12:22 PM CDT Rash SADDLE AND SIDE WIRE STITCHER THIN PREP PAP SCREEN IMAGED Routine 02/22/2024 11:40 AM CDT ANTI HIV 1/2 Routine 10/07/2020 3:22 PM RESTAURANT TEAM MEMBER Screen for STD (sexually transmitted disease) ANTI HCV Routine 10/07/2020 3:22 PM RESTAURANT TEAM MEMBER Screen for STD (sexually transmitted disease) from Last 3 Months or Most Recently Relevant to Health Maintenance Results * EP PPM (06/23/2024 8:46 AM CDT) Anatomical Region Laterality Modality X-Ray Angiograph y, X-Ray Angiography 06/23/2024 8:46 AM CDT Narrative Transcriptions Jeanie Beltran MD - 06/23/2024 5:31 PM CDT [facility] [employer] [facility] Electrophysiology Implant Report Name: TEMI GUY Event Date: 06/23/2024 [employer] ID #: [id number] Date: 1980 Gender: Female Age: 44 [facility] #: [id number] Procedure Performed By: JEANIE BELTRAN [facility] Referring Physician: Implant Procedure Type Single Chamber (atrial) Permanent Pacemaker Revision Summary / Conclusions Comments * Successful pacemaker pocket revision. Device tethered. TYRx pouch utilized. Recommendations / Plan Preoperative Diagnosis: SND, AAIR PPM, Pocket pain Procedure: Pocket revision Findings/Conclusions: Successful pocket revision Postoperative Diagnosis: Same as preoperative diagnosis Complications: NA Personally monitored patient with conscious sedation during procedure:No Estimated Blood Loss: minimal Specimen: N/A Plan: Bedrest x 1 hour Observe on telemetry during bedrest Anticipate discharge later today Pre-Operative Diagnosis ? Sinus node dysfunction ? DDD PPM ? Pocket Pain Post-Operative Diagnosis ? Same as Pre-operative diagnosis Indications ? Same as Pre-operative diagnosis Brief Patient History Comments * 44-year-old female with sinus node dysfunction underwent extraction ofher original right atrial lead due to fracture with reimplantation of anew 3830 in the right atrial appendage in February 2024. She has suffered painat the device implant site and there is concern that the device may haveshifted within the pocket towards her axilla causing discomfort when shemoves her arm. She is referred back for device pocket revision. Shepresents for the procedure today. I answered her questions. Consent & [place] Protocol [place] protocol was followed. TIME OUT conducted just prior tostarting procedure confirmed patient identity, site/side, procedure,patient position, and availability of correct equipment and implants (ifapplicable). The risks, benefits, and alternatives of the procedure were discussed withthe patient and written informed consent was obtained. Procedure Description The patient presented to the lab in atrial paced rhythm. After witnessed informed consent and sterile preparation and draping theleft prepectoral incisional scar was infiltrated with copious localanesthetic. A left prepectoral incision yielded access to the pocket. I ellipsed out the old incisional scar and dissected down to the device. The device was identified and removed and the lead was dissected out. I incised the posterior aspect of the capsule and it from theunderlying pectoralis muscle using short bursts of electrocautery. Hemostasis was assured. The new pocket was fashioned more medial and deep to the existingpocket. The new pocket was packed with antibiotic and anesthetic soaked gauze. The device and lead testing revealed nominal function. After removal of the gauze packing, the pocket was irrigated with copiousantibiotic solution. The device was introduced into the pocket with the lead coiled and tuckedbehind the device. The device was tethered to the pectoralis muscle with a nonabsorbablesuture. A TYRx pouch was introduced into the pocket and folded in front and behindthe device itself. The capsule was closed over the top of the device using interruptedabsorbable suture ties. The pocket was closed in 3 layers with absorbable suture. There were no complications. Implantable Device Specifications Pulse Generator Detail Implanted Status Pocket Location Silk Presser Model Serial Number 02/15/2024 Implanted Left Pectoral [employer] Accolade SR [id number] 05/08/2016 Explanted Left Pectoral Ages [employer] Essentio MRI SR [id number] Lead Detail Implanted Status Chamber Location Silk Presser Model Serial Number 05/08/2016 Extracted Right Atrium Right Appendage [employer].CapSureFix Nov [id number] 02/15/2024 Explanted Right Atrium Septum [employer]. Secure [id number] 02/15/2024 Chronic Right Atrium Right Appendage [employer], Inc. SecureSelect 3830- 59 [id number] Procedure(s) Performed ? Pocket revision / relocation for PPM Procedure Detail Estimated Blood Loss: < 50 ml Specimen Collected: None Level of Sedation Achieved: See Anesthesia Note Total Fluoro Time: 0 LITURGICAL MUSIC DIRECTOR Total Fluoro Dose: 0 mGy Staff Name Role Jeanie Beltran Implantmindi CASSIDY [facility], Calista RN Nurse Dayne Shin EPNorberto Mayerub Eden Galvez CVT Metal Melter DeCreThom marshall Anesthesiologist Medications Ordered and Administered Start Time Stop Time Medication Dose Units Route Ordered By Given By 08:51 0.25% Bupivicaine 20 mL Subcut MD Jeanie Hanley MD 08:51 1% Lidocaine Hydrochloride 20 mL Subcut MD Jeanie Hanley MD 09:08 0.25% Bupivicaine 10 mL Subcut MD Jeanie Hanley MD 09:08 1% Lidocaine Hydrochloride 10 mL Subcut MD Jeanie Hanley MD 09:21 Ancef 1 g IV MD Jeanie Hanley MD The anesthesia service monitored the patient?s conscious sedation duringthe procedure. The medications listed above were verbally ordered by me and read back tome as documented above. Refer to the hemodynamic procedure log report for additional casedetails. electronically signed on 06/23/2024 5:31:46 PM with status of Final Jeanie Beltran MD Implanting Head Waitress [facility] [address] [place] [address] (p) [phone](f) Jeanie Beltran MD CV IMAGING * CBC with Platelets no Differential (06/23/2024 7:18 AM CDT) [facility] WHITE BLOOD COUNT 7.9 4.5 - 11.0 thou/cu mm 06/23/2024 7:47 AM CDT [facility] RED BLOOD COUNT 4.58 4.00 - 5.20 mil/cu mm 06/23/2024 7:47 AM CDT [facility] HEMOGLOBIN 13.5 12.0 - 16.0 g/dL 06/23/2024 7:47 AM CDT [facility] HEMATOCRIT 40.6 33.0 - 51.0 % 06/23/2024 7:47 AM CDT [facility] MCV 89 80 - 100 fL 06/23/2024 7:47 AM CDT [facility] MCH 29.5 26.0 - 34.0 pg 06/23/2024 7:47 AM CDT [facility] MCHC 33.3 32.0 - 36.0 g/dL 06/23/2024 7:47 AM CDT [facility] RDW 12.7 11.5 - 15.5 % 06/23/2024 7:47 AM CDT [facility] PLATELET COUNT 324 140 - 440 thou/cu mm 06/23/2024 7:47 AM CDT [facility] MPV 9.8 6.5 - 11.0 fL 06/23/2024 7:47 AM CDT [facility] NRBC 0.0 % 06/23/2024 7:47 AM CDT [facility] ABS NRBC 0.0 thou /cu mm 06/23/2024 7:47 AM T [facility] Blood BLOOD SPECIMEN / Unknown Non-Lab Venipuncture / Unknown 06/23/2024 7:18 AM CDT 06/23/2024 7:27 AM CDT Jeanie Beltran MD HEMATOLOGY [facility] [address] [place] [address], [place] * (ABNORMAL) Basic Metabolic Panel (06/23/2024 7:18 AM CDT) SODIUM 140 136 - 145 mmol/L 06/23/2024 8:01 AM T [facility] POTASSIUM 3.8 3.5 - 5.1 mmol/L 06/23/2024 8:01 AM T [facility] CHLORIDE 105 98 - 107 mmol/L 06/23/2024 8:01 AM T [facility] CO2,TOTAL 27 22 - 29 mmol/L 06/23/2024 8:01 AM T [facility] ANION GAP 8 5 - 18 06/23/2024 8:01 AM T [facility] GLUCOSE 91 70 - 99 mg/dL 06/23/2024 8:01 AM T [facility] CALCIUM 8.7 8.6 - 10.0 mg/dL 06/23/2024 8:01 AM T [facility] BUN 8 6 - 20 mg/dL 06/23/2024 8:01 AM T [facility] CREATININE 0.87 0.50 - 0.90 mg/dL 06/23/2024 8:01 AM T [facility] BUN/CREAT RATIO 9(L) 10 - 20 8:01 AM T [facility] eGFR 84(L) >90 mL/min/1.7 3m2 06/23/2024 8:01 AM [facility] Comment:As of 2021, eG FR is calculated by the CKD-EPI creatinine equation without race adjustment. ??eGFR can be influenced by muscle mass, exercise, and diet. ??The reported eGFR is an estimation only and is only applicable if the renal function is stable. Blood BLOOD SPECIMEN / Unknown Non-Lab Venipuncture / Unknown 06/23/2024 7:18 AM CDT 06/23/2024 7:27 AM CDT Jeanie Beltran MD CHEMISTRY [facility] [address] [place] [address], [place] * 12 Lead EKG (06/23/2024 7:09 AM CDT) Interpretation Atrial-paced rhythm Low voltage QRS Incomplete right bundle branch block Abnormal ECG When compared with ECG of 16-Feb-2024 11:00, Incomplete right bundle branch block is now Present BEYOND NOW Ventricular Rate 60 BPM BEYOND NOW Atrial Rate 60 BPM BEYOND NOW P-R Interval 140 ms BEYOND NOW QRS Duration 98 ms BEYOND NOW QT 456 ms BEYOND NOW QTc 456 ms BEYOND NOW P [place] 72 degrees BEYOND NOW R [place] 39 degrees BEYOND NOW T [place] 45 degrees BEYOND NOW 06/23/2024 7:09 AM CDT 06/24/2024 8:46 AM CDT Narrative BEYOND NOW - 06/24/2024 8:46 AM CDT Test Indication: pre op Jeanie Beltran MD EKG ORD Performing Organization Address [facility] de Phone Number BEYOND NOW [place], [place] * Urine (06/23/2024 6:47 AM CDT) Pathologist [facility] ,URIN E Negative Negative 06/23/2024 7:25 AM CDT [facility] Urine URINE SPECIMEN / Unknown Non-Blood / Unknown 06/23/2024 6:47 AM CDT 06/23/2024 7:09 AM CDT Jeanie Beltran MD URINE Performing Organization Address [facility] Co de Phone Number [facility] [address] [place] [id number], [place] * STREP A PCR (06/11/2024 12:22 PM CDT) Pathologist [facility] GROUP A STREP Negative 06/12/2024 4:56 PM CDT [facility] Throat SPECIMEN FROM THROAT / Unknown Non-Blood / Unknown 06/11/2024 12:22 PM CDT 06/11/2024 12:52 PM CDT Jeanine Toro NP MICROBIOLOGY [facility] [address] [place] [address], * THROAT RAPID STREP A WITH REFLEX [02175.1] - age 0 through 17 yrs (06/11/2024 12:22 PM CDT) STREP A ANTIGEN Negative 06/11/2024 12:52 PM CDT [facility] Comment:PCR to follow. Throat SPECIMEN FROM THROAT / Unknown Non-Blood / Unknown 06/11/2024 12:22 PM CDT 06/11/2024 12:41 PM CDT Jeanine Toro NP MICROBIOLOGY Performing Organization Address City/[facility]/ZIP Co de Phone Number [facility] [address] [place] [address] * SADDLE AND SIDE WIRE STITCHER THIN PREP PAP SCREEN IMAGED (02/22/2024 11:40 AM CDT) Case Report Gynecologic Cytology Report ? Case: [id number] ? Authorizing Provider: ??Zainab Velásquez NP ?? Collected: ? 02/22/2024 1140 ? Ordering Location: ? [facility] ?Received: ?02/23/2024 1658 ? First Screen: ?Baccam, Minie ? Rescreen: ?Krystal Dunn ? Specimen: ?SADDLE AND SIDE WIRE STITCHER ThinPrep Vial Screening, Cervical ? 03/09/2024 11:20 AM CDT [facility] INTERPRETATION/ RESULT NEGATIVE FOR INTRAEPITHELIAL LESION OR MALIGNANCY (NIL) (none) 03/09/2024 11:20 AM CDT [facility] LABORATORY-C ENTRAL LABORATORY NISM(S) Shift in salud suggestive of bacterial vaginosis 03/09/2024 11:20 AM CDT [facility] LABORATORY-C ENTRAL LABORATORY SPECIMEN ADEQUACY Satisfactory for evaluation Endocervical component present 03/09/2024 11:20 AM CDT [facility] LAB[facility] HPV REQUEST HPV not requested 2023 11:20 AM CDT [facility] Date of LMP 02/03/2024 03/09/2024 11:20 AM CDT [facility] Last Pap Date 02/04/2024 03/09/2024 11:20 AM CDT [facility] Last Pap Result UNS 11:20 AM CDT [facility] Abnormal Pap or [place] Bx in last 5 years Yes 03/09/2024 11:20 AM CDT [facility] Menstrual Status Regular Periods 03/09/2024 11:20 AM CDT [facility] LAB[facility] [place] Bx Done Today No 03/09/2024 11:20 AM CDT [facility] Additional Information 03/09/2024 11:20 AM CDT [facility] Comment: Interpreted at [facility] - [address], [place] [address] Automated Review Successful 03/09/2024 11:20 AM CDT [facility] Comment:Specimen processed s uccessfully by automated telephone information clerk device, ThinPrep Imaging System, [employer] Note The pap test is a screening technique, not a diagnostic procedure. It is used primarily to screen for squamous cancers and precursor lesions. Published studies have shown that it is subject to both false negative and false positive results. The pap test should not be used as the sole means to diagnose or exclude pre-malignant and malignant lesions. 03/09/2024 11:20 AM T [facility] Other (Cervical) 02/22/2024 11:40 AM CDT 02/23/2024 4:58 PM CDT Zainab Velásquez NP PATHOLOGY/CYTOLOG Y [facility] [address] [place] [address], [place] * ANTI HCV (10/07/2020 3:22 PM RESTAURANT TEAM MEMBER) HEPATITIS C ANTIBODY Non-React papa Non-React papa 10/07/2020 7:07 PM RESTAURANT TEAM MEMBER [facility] Comment:Antibodies to HCV no t detected; does not exclude the possibility of exposure to HCV. Blood BLOOD SPECIMEN / Unknown Venipuncture / Unknown 10/07/2020 3:22 PM RESTAURANT TEAM MEMBER 10/07/2020 3:22 PM RESTAURANT TEAM MEMBER Soila REED SEND OUTS [facility] [address] [place] [address], [place] * ANTI HIV 1/2 (10/07/2020 3:22 PM RESTAURANT TEAM MEMBER) HIV-1/HIV-2 ANTIBODY Non-Reacti ve Non-Reacti ve 10/07/2020 7:09 PM RESTAURANT TEAM MEMBER [facility] Comment:HIV-1 p24 and HIV-1/ HIV-2 Ab not detected. Blood BLOOD SPECIMEN / Unknown Venipuncture / Unknown 10/07/2020 3:22 PM RESTAURANT TEAM MEMBER 10/07/2020 3:22 PM RESTAURANT TEAM MEMBER Soila REED SEND OUTS [facility] [address] [place] [address], from Last 3 Months or Most Recently [...] Code Status Discussion: Not Discussed Care Teams Buzzsaw Operator Relationship Specialty Start Date End Date Devendra Mccann MD [address] [place] [id number] PCP - General Family Practice 03/06/20
--- OUTSIDE RECORDS SUMMARY | 2024-06-27 18:49 | XMS_ITS | Encounter Summary ---
Author Organization [place] Address [address] [place] [address]. [place] [address] Care Team Providers Care Grit Blaster Name Role Phone Joy Mallory MD Unavailable [phone] Maury Mccann Primary Care Provider [phone] Kade Edmonds MD Unavailable [phone] Encounter Details Date Type Department Care Team (Late st Contact Info) Description 12/01/2022 [facility] Advice [facility] [address] [place] [address] Cathy Rajput RN Social History Tobacco Use Types Packs/Day [...] Coronavirus/COVID-19? No / Unsure 12/02/2022 9:17 AM PROCESS IMPROVEMENT CONSULTANT documented as of this encounter Plan of Treatment Not on file documented as of this encounter Visit Diagnoses Not on filedocumented in this encounter Care Teams Grit Blaster Relationship Specialty Start Date End Date Maury Mccann [address] [place] [address] PCP - General Family Medicine 10/22/20 Joy Mallory MD Ophthalmology 01/31/18 Kade Edmonds MD [address] [place] [id number] Assigned Surgical Provider 11/21/22 Mark Crabtree [facility] [address] [place] [address], [address] [place] [address] Referring Physician Ophthalmology 09/10/16 documented as of this encounter
--- OUTSIDE RECORDS SUMMARY | 2024-06-27 18:49 | XMS_ITS | Encounter Summary ---
Author Organization [facility] Address [address] [place] [address] Care Team Providers Care Web Content Developer Name Role Phone Thom Jones MD Primary Care Provider Joy Mallory MD Unavailable [phone] Maury Mccann Primary Care Provider [phone] Kade Edmonds MD Unavailable [phone] Encounter Details Date Type Department Care Team (Late st Contact Info) Description 03/01/2018 Telephone [facility] [address] [place] [phone] Kade Edmonds MD [address] [place], [place] [id number] Social History Tobacco Use Types Packs/Day Years [...] on filedocumented in this encounter Care Teams Web Content Developer Relationship Specialty Start Date End Date Thom Jones MD PCP - General Family Practice 09/10/16 10/21/20 Maury Mccann [address] [place] [address] [place] [address] PCP - General Family Medicine 10/22/20 Joy Mallory MD Ophthalmology 01/31/18 Kade Edmonds MD [address] [place] [address] Assigned Surgical Provider 11/21/22 [facility] [address] [place] [address], [address] [place] [address] Referring Physician Ophthalmology 09/10/16 documented as of this encounter
--- OUTSIDE RECORDS SUMMARY | 2024-06-27 18:49 | XMS_ITS | Clinical Summary ---
Author Organization [facility] Address [address] [place] [address] Care Team Providers Care Hitch Technician Name Role Phone Joy Mallory MD Unavailable [phone] Maury Mccann Primary Care Provider [phone] Kade Edmonds MD Unavailable [phone] Allergies Active Allergy Reactions Criticality Noted [...] into the lungs as needed 03/19/2022 Active gvwrctdw-egqjtacyx-rs xamethasone (MAXITROL) 0.1 % ophthalmic suspensionIndications :Ptosis [...] Name Administration Dates Next Due Flu 65+ (Fluad) 06/22/2012 Influenza (IIV3) PF 06/22/2012 MMR 02/08/1994,05/28/1981 [...] Comments Blood Pressure 113/64 12/02/2022 12:00 PM PHYSICIST ASTROPHYSICS Pulse 60 12/02/2022 12:00 PM PHYSICIST ASTROPHYS[facility] Temperature 36.8 ??C (98.3 ??F) 12/02/2022 1 2:15 PM PHYSICIST ASTROPHYSICS Respiratory Rate 16 12/02/2022 11:2 0 AM PHYSICIST ASTROPHYSICS Oxygen Saturation 92% 12/02/2022 12: 00 PM PHYSICIST ASTROPHYSICS Inhaled Oxygen Concentration - - Weight 100.2 kg (220 lb 14.4 oz) 12/02/2022 9:46 AM PHYSICIST ASTROPHYSICS Height 175.3 cm (5' 9.02) 12/02/2022 9:46 AM CS T Body Mass Index 32.61 12/02/2022 9:46 AM PHYSICIST ASTROPHYSICS Plan of Treatment Health Maintenance Due Date [...] 08/15/2022 08/15/2012, 09/22/2005, 04/05/1997, Additional history exists PHQ-2 (once per calendar year) 2023 12/01/2022, 11/16/2022 COVID-19 Vaccine ( - season) 2024 INFLUENZA VACCINE (#1) 2024 06/22/2012, 2011 HPV IMMUNIZATION Aged Out No longer e ligible based on patient's age to complete this topic MENINGITIS IMMUNIZATION Aged Out No l onger eligible based on patient's age to complete this topic RSV MONOCLONAL ANTIBODY Aged Out No l onger eligible based on patient's age to complete this topic Medical Devices Implanted Type Area Air Brakes Inspector Device Identifier Shelf Expiration Date Model / Serial / Lot Bioinductive Implant With Arthroscopic Delivery System (1) Medium Implanted:Qty: 1 on 10/22/2020 by Carmine Mcgrath MD at [facility] Left: Shoulder [employer] 05/18/2022 [id number] / / [id number] Tendon Anchors (8) Implanted:Qty: 1 on 10/22/2020 by Carmine Mcgrath MD at [facility] Left: Shoulder [employer] [id number] 08/08/2022 2504-1 / / [id number] Bone Anchors (3) Implanted:Qty: 1 on 10/22/2020 by Carmine Mcgrath MD at [facility] Left: Shoulder [employer] [id number] 05/10/2023 [id number] / / [id number] Care Teams Hitch Technician Relationship Specialty Start Date End Date Maury Mccann [address] [place] [address] PCP - General Family Medicine 10/22/20 Joy Mallory MD Ophthalmology 01/31/18 Kade Edmonds MD [address] [place] [address] [phone] Assigned Surgical Provider 11/21/22 [facility] [address] [place] [address], [address] [place] [address] Referring Physician Ophthalmology 09/10/16
--- OUTSIDE RECORDS SUMMARY | 2024-06-27 18:49 | XMS_ITS | Encounter Summary ---
Author Organization [place] Address [address] [place] [address]. [place] [address] Care Team Providers Care Ultrasonic Seaming Machine Operator Name Role Phone Joy Mallory MD Unavailable [phone] Maury Mccann Primary Care Provider [phone] Kade Edmonds MD Unavailable [phone] Encounter Details Date Type Department Care Team (Late st Contact Info) Description 12/01/2022 [facility] Medical Advice [facility] [address] [place] [address] Jazz Lloyd, RN Social History [...] Coronavirus/COVID-19? No / Unsure 12/02/2022 9:17 AM GREASE RENDERER documented as of this encounter Plan of Treatment Not on file documented as of this encounter Visit Diagnoses Not on filedocumented in this encounter Care Teams Ultrasonic Seaming Machine Operator Relationship Specialty Start Date End Date Maury Mccann [address] [place] [address] PCP - General Family Medicine 10/22/20 Joy Mallory MD Ophthalmology 01/31/18 Kade Edmonds MD [address] [place] [address] [phone] Assigned Surgical Provider 11/21/22 [facility] Crab[facility] [address] [place] [address], [address] [place] [address] Referring Physician Ophthalmology 09/10/16 documented as of this encounter
--- OUTSIDE RECORDS SUMMARY | 2024-06-27 18:49 | XMS_ITS | Referral Summary ---
Author Organization [facility] Address [address] [place] [address] Care Team Providers Care Lead Coater Name Role Phone Joy Mallory MD Unavailable [phone] Maury Mccann Primary Care Provider [phone] Kade Edmonds MD Unavailable Allergies Active Allergy [...] into the lungs as needed 03/19/2022 Active zvnqjfex-ofcwqdzfe-xj xamethasone (MAXITROL) 0.1 % ophthalmic suspensionIndications :Ptosis [...] Comments Blood Pressure 113/64 12/02/2022 12:00 PM RAG WILLOW OPERATOR Pulse 60 12/02/2022 12:00 PM RAG WILLOW OPERATOR Temperature 36.8 ??C (98.3 ??F) 12/02/2022 1 2:15 PM RAG WILLOW OPERATOR Respiratory Rate 16 12/02/2022 11:2 0 AM RAG WILLOW OPERATOR Oxygen Saturation 92% 12/02/2022 12: 00 PM RAG WILLOW OPERATOR Inhaled Oxygen Concentration - - Weight 100.2 kg (220 lb 14.4 oz) 12/02/2022 9:46 AM RAG WILLOW OPERATOR Height 175.3 cm (5' 9.02) 12/02/2022 9:46 AM CS T Body Mass Index 32.61 12/02/2022 9:46 AM RAG WILLOW OPERATOR Plan of Treatment Not on file Medical Devices Implanted Type Area Ticket Collector Device Identifier Shelf Expiration Date Model / Serial / Lot Bioinductive Implant With Arthroscopic Delivery System (1) Medium Implanted:Qty: 1 on 10/22/2020 by Carmine Mcgrath MD at [facility] Left: Shoulder [employer] 05/18/2022 [id number] / / [id number] Tendon Anchors (8) Implanted:Qty: 1 on 10/22/2020 by Carmine Mcgrath MD at [facility] Left: Shoulder [employer] [id number] 08/08/2022 2504-1 / / [id number] Bone Anchors (3) Implanted:Qty: 1 on 10/22/2020 by Carmine Mcgrath MD at [facility] Left: Shoulder [employer] [id number] 05/10/2023 [id number] / / [id number] Care Teams Lead Coater Relationship Specialty Start Date End Date Maury Mccann [address] [place] [address] PCP - General Family Medicine 10/22/20 Joy Mallory MD Ophthalmology 01/31/18 Kade Edmonds MD [address] [place] [address] [phone] Assigned Surgical Provider 11/21/22 Mark Crabtree [facility] [address] [place] [address], [address] [place] [address] Referring Physician Ophthalmology 09/10/16
--- OUTSIDE RECORDS SUMMARY | 2024-06-27 18:49 | XMS_ITS | Encounter Summary ---
Author Organization [facility] Address [address] [place] [address]. [place] [address] Care Team Providers Care Hot Iron Worker Name Role Phone Thom Jones MD Primary Care Provider Joy Mallory MD Unavailable [phone] Maury Mccann Primary Care Provider [phone] Kade Edmonds MD Unavailable [phone] Encounter Details Date Type Department Care Team (Late st Contact Info) Description 09/27/2020 Orders Only [facility] OR [address] [place] [address] Carmine Mcgrath MD [facility] [address] [place] [address] Encounter for screening for other viral diseases [...] Virus (Coronavirus) by PCR (10/18/2020 2:47 PM BALANCE WHEEL SCREW HOLE TAPPER) COVID-19 Virus PCR to [facility] - Source Nasopharyngeal 10/18/2020 2:47 PM BALANCE WHEEL SCREW HOLE TAPPER [facility] COVID-19 Virus PCR to [facility] - Result Test received-See reflex to IDDL test SARS CoV2 (COVID-19) Virus RT-PCR 10/18/2020 6:37 PM BALANCE WHEEL SCREW HOLE TAPPER [facility], [facility] Specimen from nasopharyngeal structure (specimen) 10/18/2020 2:47 PM BALANCE WHEEL SCREW HOLE TAPPER 10/18/2020 2:48 PM BALANCE WHEEL SCREW HOLE TAPPER Carmine Mcgrath MD LAB - MICRO GENERAL ORDERABLES INFECTIOUS DISEASES [facility], [facility] [address] [place] [address], [facility] [address] [place], [place] [address] [phone] documented in this encounter Visit Diagnoses Diagnosis Encounter for screening for other viral diseases documented in this encounter Care Teams Hot Iron Worker Relationship Specialty Start Date End Date Thom Jones MD PCP - General Family Practice 09/10/16 10/21/20 Maury Mccann [address] [place] [address] PCP - General Family Medicine 10/22/20 Joy Mallory MD Ophthalmology 01/31/18 Kade Edmonds MD [address] [place] [address] Assigned Surgical Provider 11/21/22 [facility] [address] [place] [address], [address] [place] [address] Referring Physician Ophthalmology 09/10/16 documented as of this encounter
[2024-06-27] MEDS: 0.9 % SODIUM CHLORIDE 1000 ml 1,000 ML IV (19:12)
[2024-06-27 19:20] LABS: Basophils Absolute Auto 0.05 K/uL (0.00-0.30); Basophils Percent Auto 0.6 % (0.0-3.0); Eosinophils Absolute Auto 0.49 K/uL (0.00-0.50); Eosinophils Percent Auto 6.1 % (0.0-7.0); Hematocrit 40.2 % (33.0-51.0); Hemoglobin* 13.2 gm/dL (12.0-16.0); Lymphocytes Absolute Auto 2.16 K/uL (0.90-2.90); Lymphocytes Percent Auto 26.7 % (20-44); Mean Corpuscular HGB Conc 33 gm/dL (32-36); Mean Corpuscular Hemoglobin 30 pg (26-34); Mean Corpuscular Volume 90 fL (80-100); Neutrophils Absolute Auto 4.82 K/uL (1.7-7.0); Neutrophils Percent Auto 59.6 % (42.0-72.0); Platelet Count* 324 K/uL (140-440); RDW Coefficient of Variation % 12.6 % (11.5-15.5); Red Blood Count 4.45 m/uL (4.00-5.20); White Blood Count* 8.09 K/uL (4.50-11.00)
[2024-06-27 19:31] LABS: Slide Review Reflex No
[2024-06-27 19:33] LABS: Chloride* 105 mmol/L (96-114); Potassium* 4.4 mmol/L (3.6-5.1); Sodium* 137 mmol/L (135-149)
[2024-06-27 19:36] LABS: Anion Gap 7 mEq/L (7-15); Carbon Dioxide* 25 mmol/L (20-32); Creatinine* 0.7 mg/dL (0.5-1.5); Est. Creatinine Clearance* 107.18; Estimated Glomerular Filt Rate 109 ml/min
[2024-06-27 19:37] LABS: Blood Urea Nitrogen* 7 mg/dL (5-24); Calcium* 8.6 mg/dL (8.4-10.6); Glucose* 86 mg/dL (60-115)
[2024-06-27 19:40] LABS: C Reactive Protein* 1.7 mg/dL (0.5-1.0)
[2024-06-27 19:58] LABS: NT Pro B Type NatriureticPept* 386 pg/mL; Troponin I* < 0.01 ng/mL (0.01-0.04)
== END 2024-06-27 21:25 | disposition home or self-care (01) ==
PROVIDERS: Emergency Provider Family Medicine; PCP Family Medicine
DX: R53.83 Other fatigue (principal); I49.8 Other specified cardiac arrhythmias
CPT/HCPCS: 36415; 71045; 80048; 83735; 83880; 84484; 85025; 86140; 87631; 93005; 94761; 99284; J7030

== ENCOUNTER 2025-06-01 06:36 | Outpatient (CLI) | payer BC, SELFPAY ==
--- NOTE | 2025-06-01 10:08 | P.ANES_ITS ---
Anesthesia Charges Start Date/Time Anesthesia Start Date: 06/01/25 Anesthesia Start Time: 09:30 Stop Date/Time Anesthesia Stop Date: 06/01/25 Anesthesia Stop Time: 10:10 Coding CPT Codes CPT Codes: ANES LWR INTST NDSC NOS - 67386 ([id number]) P3 - PATIENT W/SEVERE SYS DISEASE, QK - CONDOMINIUM MANAGER 2-4 CNCRNT ANES PROC, QX - COB SAWYER SVC W/ MD MED DIRECTION
--- NOTE | 2025-06-01 10:08 | W.ANESCHARGE ---
Anesthesia Charges Start Date/Time Anesthesia Start Date: 06/01/25 Anesthesia Start Time: 09:30 Stop Date/Time Anesthesia Stop Date: 06/01/25 Anesthesia Stop Time: 10:10 Coding CPT Codes CPT Codes: ANES LWR INTST NDSC NOS - 44184 ([id number]) P3 - PATIENT W/SEVERE SYS DISEASE, QK - CHIEF ORTHOPTIST 2-4 CNCRNT ANES PROC, QX - PROVIDER ENGAGEMENT EXECUTIVE SVC W/ MD MED DIRECTION
--- NOTE | 2025-06-01 10:21 | P.ANES_ITS ---
Anesthesia Charges Start Date/Time Anesthesia Start Date: 06/01/25 Anesthesia Start Time: 09:30 Stop Date/Time Anesthesia Stop Date: 06/01/25 Anesthesia Stop Time: 10:10 Coding CPT Codes CPT Codes: ANES LWR INTST NDSC NOS - 93483 ([id number]) QK - INSTRUCTOR NURSE 2-4 CNCRNT ANES PROC, QX - CLINICAL EDUCATION SPECIALIST SVC W/ MED DIRECTION, P3 - PATIENT W/SEVERE SYS DISEASE
--- NOTE | 2025-06-01 10:21 | W.ANESCHARGE ---
Anesthesia Charges Start Date/Time Anesthesia Start Date: 06/01/25 Anesthesia Start Time: 09:30 Stop Date/Time Anesthesia Stop Date: 06/01/25 Anesthesia Stop Time: 10:10 Coding CPT Codes CPT Codes: ANES LWR INTST NDSC NOS - 58067 ([id number]) QK - PIPE ORGAN INSTALLER 2-4 CNCRNT ANES PROC, QX - MANAGER AMBULATORY SVC W/ MED DIRECTION, P3 - PATIENT W/SEVERE SYS DISEASE
== END 2025-06-01 06:37 | disposition home or self-care (01) ==
PROVIDERS: PCP Family Medicine; Visit Provider Internal Medicine Gastroenterology
DX: Z12.11 Encounter for screening for malignant neoplasm of colon (principal); D12.4 Benign neoplasm of descending colon; D12.8 Benign neoplasm of rectum
CPT/HCPCS: 00811; 00812; 45385; 88305; A9270; J2704

== ENCOUNTER 2025-09-07 15:40 | Outpatient (CLI) | payer BC, SELFPAY | END 2025-09-07 15:41 | disposition home or self-care (01) | PROVIDERS: PCP Family Medicine; Visit Provider Obstetrics & Gynecology | DX: N93.9 Abnormal uterine and vaginal bleeding, unspecified (principal); R53.83 Other fatigue | CPT/HCPCS: 80053; 80061; 82306; 83540; 83550; 84443 ==

== ENCOUNTER 2025-09-14 10:28 | Outpatient (CLI) | payer BC, SELFPAY ==
--- NOTE | 2025-09-14 10:45 | CRLHL7_ITS ---
For Patients: As a result of the Century Cures Act, medical imaging exams and procedure reports are released immediately into your electronic medical record. You may view this report before your referring provider. If you have questions, please contact your health care provider. DIGITAL DIAGNOSTIC BILATERAL MAMMOGRAM USING TOMOSYNTHESIS AND COMPUTER-AIDED DETECTION RIGHT AXILLARY ULTRASOUND CLINICAL HISTORY: RIGHT axillary lump. COMPARISON: 02/04/2024, 02/08/2023, 08/13/2021. TECHNIQUE: Digital BILATERAL mammogram in four projections with computer-aided detection. Tomosynthesis was used in this interpretation. Real-time ultrasound imaging of RIGHT axilla with imaging documentation. BREAST COMPOSITION: The breasts are heterogeneously dense, which may obscure small masses. FINDINGS: 3D CC/MLO BILATERAL mammogram images submitted. Post biopsy changes RIGHT breast. No architectural distortion. Benign nodular densities bilaterally are unchanged. Similar appearance of the axillary regions without adenopathy. Targeted RIGHT axillary ultrasound performed in the area of concern. No adenopathy. Subcutaneous fat is present. IMPRESSION: Subcutaneous fat/lipoma within the RIGHT axilla. No suspicious findings. No evidence of malignancy. RECOMMENDATIONS: Clinical follow-up. Routine screening mammography. A lay language report of this examination will be provided to the patient. BI-RADS Category 2: Benign Dictated by Thom Dc MD @ 09/14/2025 11:26:10 AM j/Dictated by: Thom Dc MD @ 09/14/2025 11:26:00 AM (Electronically Signed)
--- NOTE | 2025-09-14 11:15 | CRLHL7_ITS ---
For Patients: As a result of the Cures Act, medical imaging exams and procedure reports are released immediately into your electronic medical record. You may view this report before your referring provider. If you have questions, please contact your health care provider. SEE DIGITAL DIAGNOSTIC BILATERAL MAMMOGRAM PERFORMED SAME DAY CRL:albaro irvin/Dictated by: Thom Dc MD @ 09/14/2025 11:32:00 AM (Electronically Signed)
== END 2025-09-14 10:29 | disposition home or self-care (01) ==
LOC: MAMMO 10:29
PROVIDERS: PCP Family Medicine; Visit Provider Obstetrics & Gynecology
DX: R92.333 Mammographic heterogeneous density, bilateral breasts (principal)
CPT/HCPCS: 76882; 77066; G0279

== ENCOUNTER 2025-10-03 07:07 | Outpatient (CLI) | payer BC, SELFPAY ==
--- NOTE | 2025-10-03 07:15 | CRLHL7_ITS ---
For Patients: As a result of the Century Cures Act, medical imaging exams and procedure reports are released immediately into your electronic medical record. You may view this report before your referring provider. If you have questions, please contact your health care provider. CLINICAL HISTORY: Abdominal uterine and vaginal bleeding COMPARISON: None. TECHNIQUE: 2D ramirez-scale and color Doppler images were acquired of the pelvis using a transvaginal approach. FINDINGS: Uterus measures 10.4 x 5.1 x 6.5 cm. Uterine echotexture is heterogeneous. No fibroid. The endometrial lining appears normal and measures 4 mm in thickness. The left ovary measures 2.9 x 1.3 x 1.4 cm in size and the right ovary measures 3.0 x 1.5 x 1.6 cm. The ovaries demonstrate normal arterial and venous blood flow on color Doppler analysis. There are no suspicious fluid collections within the cul-de-sac. IMPRESSION: Endometrium measures 4 millimeters. No endometrial fluid. No uterine fibroid. Dictated by Thom Dc MD @ 10/07/2025 12:59:41 PM (Electronically Signed)
== END 2025-10-03 07:08 | disposition home or self-care (01) ==
LOC: US 07:08
PROVIDERS: PCP Family Medicine; Visit Provider Obstetrics & Gynecology
DX: N93.9 Abnormal uterine and vaginal bleeding, unspecified (principal); R93.89 Abnormal findings on diagnostic imaging of other specified body structures
CPT/HCPCS: 76830